=== PATIENT | female | born 1965 | race Caucasian/White ===

== ENCOUNTER → 2019-12-23 12:49 | Outpatient (BNVA) | payer BC, SELFPAY | PROVIDERS: Family Provider Family Medicine; Visit Provider Nurse Practitioner Psychiatric/Mental Health | DX: F33.2 Major depressive disorder, recurrent severe without psychotic features (principal); F41.1 Generalized anxiety disorder; Z63.4 Disappearance and death of family member | CPT/HCPCS: 99214 ==

== ENCOUNTER → 2020-01-03 13:50 | Outpatient (BNVA) | payer BC, SELFPAY | PROVIDERS: Family Provider Family Medicine; PCP Family Medicine; Visit Provider Social Worker | DX: F33.2 Major depressive disorder, recurrent severe without psychotic features (principal); F41.1 Generalized anxiety disorder | CPT/HCPCS: 90834 ==

== ENCOUNTER → 2020-01-16 14:38 | Outpatient (BNVA) | payer BC, SELFPAY | PROVIDERS: Family Provider Family Medicine; PCP Family Medicine; Visit Provider Nurse Practitioner Psychiatric/Mental Health | DX: F33.2 Major depressive disorder, recurrent severe without psychotic features (principal); F41.1 Generalized anxiety disorder; Z63.4 Disappearance and death of family member | CPT/HCPCS: 99214 ==

== ENCOUNTER → 2020-02-16 13:45 | Outpatient (BNVA) | payer BC, SELFPAY | PROVIDERS: Family Provider Family Medicine; PCP Family Medicine; Visit Provider Social Worker | DX: F33.2 Major depressive disorder, recurrent severe without psychotic features (principal); F41.1 Generalized anxiety disorder | CPT/HCPCS: 90834 ==

== ENCOUNTER → 2020-03-01 08:28 | Outpatient (BNVA) | payer BC, SELFPAY | PROVIDERS: Family Provider Family Medicine; PCP Family Medicine; Visit Provider Nurse Practitioner Psychiatric/Mental Health | DX: F33.2 Major depressive disorder, recurrent severe without psychotic features (principal); F41.1 Generalized anxiety disorder; Z63.4 Disappearance and death of family member | CPT/HCPCS: 99214 ==

== ENCOUNTER → 2020-03-13 08:27 | Outpatient (BNVA) | payer BC, SELFPAY | PROVIDERS: Family Provider Family Medicine; PCP Family Medicine; Visit Provider Social Worker | DX: R41.3 Other amnesia (principal); F33.2 Major depressive disorder, recurrent severe without psychotic features; F41.1 Generalized anxiety disorder | CPT/HCPCS: 90834 ==

== ENCOUNTER → 2020-04-05 08:31 | Outpatient (BNVA) | payer BC, SELFPAY | PROVIDERS: Family Provider Family Medicine; PCP Family Medicine; Visit Provider Social Worker | DX: F33.2 Major depressive disorder, recurrent severe without psychotic features (principal); F41.1 Generalized anxiety disorder | CPT/HCPCS: 90834 ==

== ENCOUNTER → 2020-04-12 10:06 | Outpatient (BNVA) | payer BC, SELFPAY | PROVIDERS: Family Provider Family Medicine; PCP Family Medicine; Visit Provider Family Medicine | DX: Z00.00 Encounter for general adult medical examination without abnormal findings (principal); R30.0 Dysuria; E55.9 Vitamin D deficiency, unspecified; Z12.31 Encounter for screening mammogram for malignant neoplasm of breast; Z13.6 Encounter for screening for cardiovascular disorders; Z86.39 Personal history of other endocrine, nutritional and metabolic disease | CPT/HCPCS: 80053; 80061; 81000; 82306; 85025 ==

== ENCOUNTER 2020-04-28 12:31 | Emergency (ER) | payer BC, SELFPAY ==
[2020-04-28 12:33] VITALS: BP 98/70; PULSE 73; RESP 18; TEMP 36.1; O2SAT 100; BMI 28.7
[2020-04-28 12:43] VITALS: RESP 17
--- NOTE | 2020-04-28 13:02 | W.ED.ANIMALB ---
HPI - Animal Bite General: Chief Complaint: Animal Bite Stated Complaint: DOG BITE 04/21 Time Seen by Provider: 04/28/20 12:34 Source: patient Mode of arrival: ambulatory Limitations: no limitations History of Present Illness: HPI narrative: Patient is a 54-year-old female who went to feed her neighbors dog. She states that the dog is very territorial and she knows this, however she still went ahead to try to feed the dog. The dog then bit her on her right forearm. This happened 1 week ago. The patient did not seek care after that and has been cleaning the wound daily with chlorhexidine. She is having increased pain and some redness and drainage from the wounds. The dog is an inside dog and is never let out, and she states that the dog is up-to-date on his rabies vaccines. The patient had a tetanus vaccine last year. complaint: animal bite Onset (ago): week(s) (1) Animal: dog Description of animal: household pet, immunizations UTD and appeared well Mechanism: bite Location - Extremities: Right: forearm Context: provoked Associated symptoms: Deny chills, fever(s) or headache(s) Review of Systems General: Reports: 10 or more systems reviewed and unremarkable except in HPI and below Const: Denies: fever(s), chills or body aches Card: Reports: chest pain; Denies: palpitations, irregular heart rhythm, edema or swelling of feet/ankles Resp: Denies: dyspnea, productive cough or non-productive cough GI: Denies: abdominal pain, nausea or vomiting : Denies: flank pain, difficulty voiding, dysuria, urinary frequency, urinary urgency or urinary hesitancy Musc: Denies: neck pain, back pain or extremity swelling Skin/Breast: Reports: sores; Denies: rash, pruritus or erythema Neuro: Denies: headache(s), numbness in extremities or weakness in extremities PFSH ED PFSH: Medical History Bereavement Fibromyalgia Generalized anxiety disorder Major depressive disorder, recurrent severe without psychotic features Surgical History H/O spinal fusion H/O: hysterectomy S/P appendectomy S/P cholecystectomy S/P tonsillectomy and adenoidectomy Family History Other Diabetes Lung disease Psychiatric illness Social History Smoking and tobacco status: never smoked Alcohol intake: never Physical Exam Const: COMMON NORMALS: no acute distress, average body habitus, patient oriented x3, no limitations, healthy appearing, alert and well nourished HENMT: COMMON NORMALS: normocephalic, atraumatic and moist oral mucous membranes HEAD & SCALP: normocephalic and atraumatic Eye: COMMON NORMALS: Equal, round and reactive pupils present, EOMs intact bilaterally, conjunctivae normal and no scleral icterus CONJUNCTIVA: Yes conjunctivae normal PUPIL: Yes Equal, round and reactive pupils present Neck/C-Spine: COMMON NORMALS: no meningeal signs and no JVD Resp: COMMON NORMALS: normal respiratory effort, No retractions, No use of accessory muscles, clear to auscultation bilaterally and percussion normal AUSCULTATION: clear to auscultation bilaterally PERCUSSION: percussion normal Cardio: COMMON NORMALS: no JVD, regular rate, regular rhythm, S1 normal heart sound present, S2 normal heart sound present, No gallops present (Cardio), No clicks present (Cardio), No murmurs present (Cardio), No rub (Cardio) and Peripheral pulses 2+ throughout RATE: regular rate RHYTHM: regular rhythm HEART SOUNDS: S1 normal heart sound present and S2 normal heart sound present PERIPHERAL PULSES: Peripheral pulses 2+ throughout GI: COMMON NORMALS: Normal to inspection, nondistended, normoactive bowel sounds present, Soft to palpation, non-tender, No hepatosplenomegaly present, no masses and no bruits PALPATION: Yes Soft to palpation and Yes No hepatosplenomegaly present : COMMON NORMALS: Yes no CVA tenderness BLADDER/KIDNEY EXAM: Yes no CVA tenderness Back/Pelvis: COMMON NORMALS: no CVA tenderness Extremity: COMMON NORMALS: normal to inspection, full ROM, capillary refill normal, no calf tenderness and no pedal edema Neuro: COMMON NORMALS: patient oriented x3 SENSORIUM/ORIENTATION: Yes alert MENINGEAL SIGNS: Yes no meningeal signs Skin: COMMON NORMALS: no wounds, turgor normal, no jaundice, no petechiae and no mottling GENERAL SKIN EXAM: turgor normal OTHER: 3 bite [place] noted on her right forearm, with mild surrounding erythema. No drainage or discharge noted Course Vital Signs: Vital signs: Vital Signs Temperature 96.9 F L 04/28/20 12:33 Pulse Rate 67 04/28/20 13:10 Respiratory Rate 17 04/28/20 13:10 Blood Pressure 109/70 04/28/20 13:10 Pulse Oximetry 96 04/28/20 13:10 MDM - Animal Bite MDM Narrative: Medical decision making narrative: 54-year-old female with a week old dog bite. The dog is fully immunized and no risk of rabies. She did not seek care and has not been on antibiotics. I cleaned her wound with iodine and saline covered with sterile dressing and discharge her home on oral doxycycline. She is allergic to penicillins. She is advised to follow-up with her primary care provider for wound evaluation. Discharge Plan Discharge Patient Disposition: Home, Self-Care Clinical Impression: Dog bite of extremity Condition: Stable Prescriptions: New doxycycline hyclate 100 mg tablet 100 mg PO BID 7 Days Qty: 14 RF: 0 Continued famotidine [Pepcid] 20 mg tablet 20 mg PO BID RF: 0 fluoxetine [Prozac] 20 mg capsule 20 mg PO .morning Qty: 30 RF: 1 clonazepam [Klonopin] 0.5 mg tablet 0.5 mg PO BID Qty: 60 RF: 3 cyclobenzaprine 10 mg tablet 10 mg PO TID PRN (Reason: muscle spasm) RF: 0 albuterol sulfate 90 mcg/actuation HFA aerosol inhaler 2 puff INHALATION Q6H PRNRF: 0 fluticasone propionate [Allergy Relief (fluticasone)] 50 mcg/actuation spray,suspension 2 spray INTRANASAL DAILY RF: 0 trazodone 300 mg tablet 300 mg PO .QHS Qty: 30 RF: 3 multivitamin Tablet 1 tab PO QAM RF: 0 cholecalciferol (vitamin D3) 25 mcg (1,000 unit) capsule 25 mcg PO DAILY RF: 0 biotin 1 mg capsule 1 mg PO DAILY RF: 0 Discharge Orders: Discharge Order (Routine); Ordered 04/28/20 Ordered By: Ryan Acevedo Referrals: Ruthie Esteban MD [Family Provider] - Rachel Whittington DO [Primary Care Provider] - 4-7 days Patient Instructions: Animal Bite (ED) Activity Restrictions/Additional Instructions: Return for any new or worsening symptoms. Take the antibiotics as prescribed. Continue the wound care as you were doing. Follow-up with your primary care provider within 1 week for wound recheck. Discharge Date/Time: 04/28/20 13:10 Coding Level of Care Code ED Bonding Agent for Lainey Sanon
[2020-04-28 13:10] VITALS: BP 109/70; PULSE 67; RESP 17; O2SAT 96
== END 2020-04-28 13:10 | disposition home or self-care (01) ==
PROVIDERS: Emergency Provider Family Medicine; Family Provider Family Medicine; PCP Family Medicine
DX: S51.851A Open bite of right forearm, initial encounter (principal); W54.0XXA Bitten by dog, initial encounter
CPT/HCPCS: 12345; 99281; 99282

== ENCOUNTER → 2020-04-30 07:32 | Outpatient (BNVA) | payer BC, SELFPAY | PROVIDERS: Family Provider Family Medicine; PCP Family Medicine; Visit Provider Nurse Practitioner Psychiatric/Mental Health | DX: F33.2 Major depressive disorder, recurrent severe without psychotic features (principal); F41.1 Generalized anxiety disorder; Z63.4 Disappearance and death of family member | CPT/HCPCS: 99214 ==

== ENCOUNTER → 2020-05-03 07:57 | Outpatient (BNVA) | payer BC, SELFPAY | PROVIDERS: Family Provider Family Medicine; PCP Family Medicine; Visit Provider Counselor Professional | DX: F33.2 Major depressive disorder, recurrent severe without psychotic features (principal); F41.1 Generalized anxiety disorder; Z63.4 Disappearance and death of family member | CPT/HCPCS: 90834 ==

== ENCOUNTER → 2020-05-21 08:23 | Outpatient (BNVA) | payer BC, SELFPAY | PROVIDERS: Family Provider Family Medicine; PCP Family Medicine; Visit Provider Counselor Professional | DX: F33.2 Major depressive disorder, recurrent severe without psychotic features (principal); Z63.4 Disappearance and death of family member | CPT/HCPCS: 90834 ==

== ENCOUNTER 2020-05-30 11:44 | Outpatient (CLI) | payer BC, SELFPAY ==
--- NOTE | 2020-05-30 12:00 | MM_ITS ---
WS: [id number] BILATERAL DIGITAL SCREENING MAMMOGRAPHY WITH CAD CLINICAL INFORMATION: screening mammogram HISTORY: Screening mammogram. No current complaints. COMPARISON: 4 16,018 TECHNIQUE: Bilateral CC and MLO views. FINDINGS: Scattered fibroglandular densities bilaterally. No suspicious focal mass, asymmetry, calcifications, or architectural distortion. No evidence of malignancy. A few tiny punctate calcifications right sofya st. MM/[id number] IMPRESSION: BI-RADS: 2-Benign FOLLOW UP: 1 Year Follow-up Recommend return to annual screening mammography.
== END 2020-05-30 11:45 | disposition home or self-care (01) ==
LOC: RADSHAW 11:47
PROVIDERS: PCP Family Medicine; Visit Provider Family Medicine
DX: Z12.31 Encounter for screening mammogram for malignant neoplasm of breast (principal)
CPT/HCPCS: 77067

== ENCOUNTER → 2020-06-01 07:44 | Outpatient (BNVA) | payer BC, SELFPAY | PROVIDERS: PCP Family Medicine; Visit Provider Nurse Practitioner Psychiatric/Mental Health | DX: F33.2 Major depressive disorder, recurrent severe without psychotic features (principal); F41.1 Generalized anxiety disorder; Z63.4 Disappearance and death of family member | CPT/HCPCS: 99214 ==

== ENCOUNTER 2020-06-08 10:24 | Outpatient (CLI) | payer BC, SELFPAY ==
--- NOTE | 2020-06-08 10:32 | USCV_ITS ---
Gay Castro Age: 54 Gender: F : 1965 Exam Date: 06/08/2020 10:58 Ordering Phys: Rachel Whittington DO Technologist: Katheryn Anne [place] [facility] [place]: SWELLING OF FEET BP: / HR: 65 Rhythm: Sinus Technical Quality: Adequate MEASUREMENTS (Male / Female) Normal Values 2D ECHO LV Diastolic Diameter PLAX 3.6 cm 4.2 - 5.9 / 3.9 - 5.3 cm LV Systolic Diameter PLAX 3.3 cm LV Chamber Size 3.3 cm IVS Diastolic Thickness 0.9 cm 0.6 - 1.0 / 0.6 - 0.9 cm IVS Systolic Thickness 1.6 cm LVPW Diastolic Thickness 1.0 cm 0.6 - 1.0 / 0.6 - 0.9 cm LVPW Systolic Thickness 1.1 cm RV Chamber Size 2.5 cm LVOT Diameter 2.0 cm LV Ejection Fraction 2D Teich 16.6 % LV Ejection Fraction MOD 2C 49.2 % LV Ejection Fraction 2C AL 47.9 % LA Diameter 3.3 cm LA Width 2.4 cm LA Height 4.3 cm RA Width 2.7 cm RA Height 2.9 cm Aorta at Sinotubular Diameter 2.8 cm M-MODE LV Diastolic Diameter MM 4.6 cm 4.2 - 5.9 / 3.9 - 5.3 cm LV Systolic Diameter MM 3.0 cm LV Ejection Fraction MM Teich 64.4 % IVS Diastolic Thickness MM 1.0 cm 0.6 - 1.0 / 0.6 - 0.9 cm IVS Systolic Thickness MM 1.2 cm LVPW Diastolic Thickness MM 1.1 cm 0.6 - 1.0 / 0.6 - 0.9 cm LVPW Systolic Thickness MM 1.4 cm RV Diastolic Diameter MM 0.8 cm Aortic Annulus Diameter 2.6 cm LA Ao Ratio MM 1.2 MV E Point Septal Separation 0.4 cm DOPPLER AV Peak Velocity 150.0 cm/s LVOT Peak Velocity 102.0 cm/s AV Area Cont Eq vti 2.2 cm squared AV Area Cont Eq pk 2.2 cm squared MV Area PHT 3.9 cm squared Mitral E to A Ratio 1.2 MV E' Velocity 11.0 cm/s Mitral E to MV E' Ratio 7.3 Mitral E to LV E' Lateral Ratio 6.9 Mitral E to LV E' Septal Ratio 7.9 TR Peak Velocity 203.0 cm/s TR Peak Gradient 16.5 mmHg TR Mean Velocity 69.6 cm/s TR Mean Gradient 2.3 mmHg TR Velocity Time Integral 26.7 cm TV Peak E Velocity 56.0 cm/s Right Atrial Pressure 3.0 mmHg Pulmonary Artery Systolic Pressu 19.5 mmHg PV Peak Velocity 73.0 cm/s RV Acceleration Time 0.1 s RV Ejection Time 0.3 s RV AcT/ET 0.3 FINDINGS Left Ventricle Normal left ventricular size, systolic function and wall thickness, with no regional wall motion abnormalities. Left ventricular ejection fraction is estimated at 65 %. Normal diastolic function. Right Ventricle Normal right ventricular size and systolic function, RVSP 19.5 mmHg. Right Atrium Normal right atrial size. Left Atrium Normal left atrial size. Mitral Valve Structurally normal mitral valve. No mitral valve stenosis. Trace mitral valve regurgitation. Aortic Valve Structurally normal trileaflet aortic valve. No aortic valve stenosis. No aortic valve regurgitation. Tricuspid Valve Structurally normal tricuspid valve. Trace tricuspid valve regurgitation. Pulmonic Valve Structurally normal pulmonic valve. Trace pulmonary valve regurgitation. Pericardium No pericardial effusion. Aorta Normal size aortic root and proximal ascending aorta. CONCLUSIONS 1. Normal left ventricular size, systolic function and wall thickness, with no regional wall motion abnormalities. Left ventricular ejection fraction is estimated at 65 %. Normal diastolic function. 2. No significant valvular abnormality. 3. Normal pulmonary artery pressure. 4. No prior similar studies to compare. Vania Jo MD (Electronically Signed) Final Date: 11 June 2020 05:56 S
== END 2020-06-08 10:25 | disposition home or self-care (01) ==
LOC: RAD 10:27
PROVIDERS: PCP Family Medicine; Visit Provider Family Medicine
DX: R60.0 Localized edema (principal); M79.89 Other specified soft tissue disorders
CPT/HCPCS: 93306

== ENCOUNTER → 2020-06-11 08:13 | Outpatient (BNVA) | payer BC, SELFPAY | PROVIDERS: PCP Family Medicine; Visit Provider Counselor Professional | DX: F33.2 Major depressive disorder, recurrent severe without psychotic features (principal); F41.1 Generalized anxiety disorder; Z63.4 Disappearance and death of family member | CPT/HCPCS: 90834 ==

== ENCOUNTER → 2020-06-12 14:50 | Outpatient (BNVA) | payer BC, SELFPAY | PROVIDERS: PCP Family Medicine; Visit Provider Family Medicine | DX: R60.0 Localized edema (principal); R41.3 Other amnesia | CPT/HCPCS: 80048 ==

== ENCOUNTER → 2020-06-22 09:06 | Outpatient (BNVA) | payer BC, SELFPAY | PROVIDERS: PCP Family Medicine; Visit Provider Counselor Professional | DX: F33.2 Major depressive disorder, recurrent severe without psychotic features (principal); F41.1 Generalized anxiety disorder; Z63.4 Disappearance and death of family member | CPT/HCPCS: 90834 ==

== ENCOUNTER → 2020-07-02 08:37 | Outpatient (BNVA) | payer BC, SELFPAY | PROVIDERS: PCP Family Medicine; Visit Provider Counselor Professional | DX: F33.2 Major depressive disorder, recurrent severe without psychotic features (principal); F41.1 Generalized anxiety disorder; Z63.4 Disappearance and death of family member | CPT/HCPCS: 90834 ==

== ENCOUNTER → 2020-07-13 10:08 | Outpatient (BNVA) | payer BC, SELFPAY | PROVIDERS: PCP Family Medicine; Visit Provider Nurse Practitioner Psychiatric/Mental Health | DX: F33.2 Major depressive disorder, recurrent severe without psychotic features (principal); F41.1 Generalized anxiety disorder; Z63.4 Disappearance and death of family member | CPT/HCPCS: 99214 ==

== ENCOUNTER → 2020-07-16 09:00 | Outpatient (BNVA) | payer BC, SELFPAY | PROVIDERS: PCP Family Medicine; Visit Provider Counselor Professional | DX: F33.2 Major depressive disorder, recurrent severe without psychotic features (principal); F41.1 Generalized anxiety disorder; Z63.4 Disappearance and death of family member | CPT/HCPCS: 90834 ==

== ENCOUNTER → 2020-07-26 11:46 | Outpatient (BNVA) | payer BC, SELFPAY | PROVIDERS: PCP Family Medicine; Visit Provider Family Medicine | DX: R60.0 Localized edema (principal) | CPT/HCPCS: 80048 ==

== ENCOUNTER → 2020-08-06 08:27 | Outpatient (BNVA) | payer BC, SELFPAY | PROVIDERS: PCP Family Medicine; Visit Provider Counselor Professional | DX: F33.2 Major depressive disorder, recurrent severe without psychotic features (principal); F41.1 Generalized anxiety disorder; Z63.4 Disappearance and death of family member | CPT/HCPCS: 90834 ==

== ENCOUNTER → 2020-08-27 09:08 | Outpatient (BNVA) | payer BC, SELFPAY | PROVIDERS: PCP Family Medicine; Visit Provider Counselor Professional | DX: F33.2 Major depressive disorder, recurrent severe without psychotic features (principal); F41.1 Generalized anxiety disorder | CPT/HCPCS: 90834 ==

== ENCOUNTER → 2020-09-10 08:21 | Outpatient (BNVA) | payer BC, SELFPAY | PROVIDERS: PCP Family Medicine; Visit Provider Nurse Practitioner Psychiatric/Mental Health | DX: F33.2 Major depressive disorder, recurrent severe without psychotic features (principal); F41.1 Generalized anxiety disorder; Z63.4 Disappearance and death of family member | CPT/HCPCS: 99214 ==

== ENCOUNTER → 2020-09-14 07:53 | Outpatient (BNVA) | payer BC, SELFPAY | PROVIDERS: PCP Family Medicine; Visit Provider Counselor Professional | DX: F33.2 Major depressive disorder, recurrent severe without psychotic features (principal); F41.1 Generalized anxiety disorder; Z63.4 Disappearance and death of family member | CPT/HCPCS: 90834 ==

== ENCOUNTER → 2020-09-25 08:01 | Outpatient (BNVA) | payer BC, SELFPAY | PROVIDERS: PCP Family Medicine; Visit Provider Counselor Professional | DX: F33.2 Major depressive disorder, recurrent severe without psychotic features (principal); F41.1 Generalized anxiety disorder; Z63.4 Disappearance and death of family member | CPT/HCPCS: 90834 ==

== ENCOUNTER → 2020-10-04 08:14 | Outpatient (BNVA) | payer BC, SELFPAY | PROVIDERS: PCP Family Medicine; Visit Provider Counselor Professional | DX: F33.2 Major depressive disorder, recurrent severe without psychotic features (principal); F41.1 Generalized anxiety disorder; Z63.4 Disappearance and death of family member | CPT/HCPCS: 90834 ==

== ENCOUNTER → 2020-10-08 08:55 | Outpatient (BNVA) | payer BC, SELFPAY | PROVIDERS: PCP Family Medicine; Visit Provider Counselor Professional | DX: F33.2 Major depressive disorder, recurrent severe without psychotic features (principal); F41.1 Generalized anxiety disorder; Z63.4 Disappearance and death of family member | CPT/HCPCS: 90834 ==

== ENCOUNTER → 2020-10-30 08:23 | Outpatient (BNVA) | payer BC, SELFPAY | PROVIDERS: PCP Family Medicine; Visit Provider Counselor Professional | DX: F33.2 Major depressive disorder, recurrent severe without psychotic features (principal); F41.1 Generalized anxiety disorder; Z63.4 Disappearance and death of family member | CPT/HCPCS: 90834 ==

== ENCOUNTER → 2020-11-06 13:43 | Outpatient (BNVA) | payer BC, SELFPAY | PROVIDERS: PCP Family Medicine; Referring Provider Family Medicine; Visit Provider Specialist | DX: G31.84 Mild cognitive impairment of uncertain or unknown etiology (principal); R56.9 Unspecified convulsions; M79.7 Fibromyalgia | CPT/HCPCS: 96116; 99204 ==

== ENCOUNTER → 2020-11-07 07:36 | Outpatient (BNVA) | payer BC, SELFPAY | PROVIDERS: PCP Family Medicine; Visit Provider Nurse Practitioner Psychiatric/Mental Health | DX: F33.2 Major depressive disorder, recurrent severe without psychotic features (principal); F41.1 Generalized anxiety disorder; Z63.4 Disappearance and death of family member; G31.84 Mild cognitive impairment of uncertain or unknown etiology | CPT/HCPCS: 99214 ==

== ENCOUNTER → 2020-11-19 08:20 | Outpatient (BNVA) | payer OTHER, SELFPAY | PROVIDERS: PCP Family Medicine; Visit Provider Counselor Professional | DX: F33.2 Major depressive disorder, recurrent severe without psychotic features (principal); F41.1 Generalized anxiety disorder; Z63.4 Disappearance and death of family member; G31.84 Mild cognitive impairment of uncertain or unknown etiology | CPT/HCPCS: 90834 ==

== ENCOUNTER → 2020-11-27 09:22 | Outpatient (BNVA) | payer OTHER, SELFPAY | PROVIDERS: PCP Family Medicine; Visit Provider Counselor Professional | DX: F33.2 Major depressive disorder, recurrent severe without psychotic features (principal); F41.1 Generalized anxiety disorder; Z63.4 Disappearance and death of family member; G31.84 Mild cognitive impairment of uncertain or unknown etiology | CPT/HCPCS: 90834 ==

== ENCOUNTER → 2020-11-29 13:01 | Outpatient (BNVA) | payer OTHER, SELFPAY | PROVIDERS: PCP Family Medicine; Visit Provider Specialist | DX: G40.909 Epilepsy, unspecified, not intractable, without status epilepticus (principal); G31.84 Mild cognitive impairment of uncertain or unknown etiology | CPT/HCPCS: 95816 ==

== ENCOUNTER → 2020-12-03 14:12 | Outpatient (BNVA) | payer OTHER, SELFPAY | PROVIDERS: PCP Family Medicine; Visit Provider Nurse Practitioner Family | DX: Z20.828 Contact with and (suspected) exposure to other viral communicable diseases (principal); J06.9 Acute upper respiratory infection, unspecified | CPT/HCPCS: 87635 ==

== ENCOUNTER → 2020-12-10 08:44 | Outpatient (BNVA) | payer OTHER, SELFPAY | PROVIDERS: PCP Family Medicine; Visit Provider Counselor Professional | DX: F33.2 Major depressive disorder, recurrent severe without psychotic features (principal); F41.1 Generalized anxiety disorder; Z63.4 Disappearance and death of family member; G31.84 Mild cognitive impairment of uncertain or unknown etiology | CPT/HCPCS: 90834 ==

== ENCOUNTER 2020-12-13 15:06 | Outpatient (CLI) | payer OTHER, SELFPAY ==
--- NOTE | 2020-12-13 15:12 | MR_ITS ---
WS: [id number] MRI HEAD WITHOUT CONTRAST TECHNIQUE: Sagittal T1, T2 axial, T2 axial FLAIR, axial and coronal T1 images, axial susceptibility w eighted imaging, axial diffusion weighted images, and coronal T2 images were obtained. CLINICAL INFORMATION: R41.3 - Other amnesia COMPARISON: MRI 2012 FINDINGS: No evidence of restricted diffusion to suggest acute ischemia. Ventricular system and basal cisterns are patent. No suspicious intracranial signal abnormalities. Normal quintero-white differentiation. No hy drocephalus. Tiny chronic lacunar infarct left cerebellum. Normal vascular flow voids skull base. No extra-axial fluid collections. No evidence of mass or mass effect. Paranasal sinuses and mastoid air cells well aerated. Temporal lobes and hippocampal formatio ns are normal in appearance. No signal abnormalities in the mesial temporal lobes. No hemosiderin on susceptibly weighted images. Normal optic chiasm and pituitary infundibulum. Normal cavernous sinus a nd Meckel's cave. MR/MR head wo con* [id number] IMPRESSION: 1. No evidence of restricted diffusion to suggest acute ischemia. 2. No suspicious intracranial signal abnormalities. Mild parenchymal volume lo ss. 3. Temporal lobes and hippocampal formations are normal in appearance. No sign al abnormality in the mesial temporal lobes. 4. No hemosiderin on susceptibly weighted images. 5. Tiny chronic lacunar infarct left cerebellum
== END 2020-12-13 15:07 | disposition home or self-care (01) ==
LOC: RADSHAW 15:11
PROVIDERS: PCP Family Medicine; Visit Provider Specialist
DX: R41.3 Other amnesia (principal); I63.81 Other cerebral infarction due to occlusion or stenosis of small artery
CPT/HCPCS: 70551; 99214

== ENCOUNTER → 2020-12-24 07:51 | Outpatient (BNVA) | payer BC, SELFPAY | PROVIDERS: PCP Family Medicine; Visit Provider Nurse Practitioner Psychiatric/Mental Health | DX: F33.2 Major depressive disorder, recurrent severe without psychotic features (principal); F41.1 Generalized anxiety disorder; Z63.4 Disappearance and death of family member; G31.84 Mild cognitive impairment of uncertain or unknown etiology | CPT/HCPCS: 99214 ==

== ENCOUNTER → 2021-01-23 14:13 | Outpatient (BNVA) | payer OTHER, SELFPAY | PROVIDERS: PCP Family Medicine; Visit Provider Family Medicine | DX: M79.671 Pain in right foot (principal); R60.0 Localized edema | CPT/HCPCS: 80048 ==

== ENCOUNTER 2021-01-25 13:28 | Outpatient (CLI) | payer OTHER, SELFPAY ==
--- NOTE | 2021-01-25 13:45 | XR_ITS ---
WS: [id number] RIGHT FOOT: 3 VIEW(S) TECHNIQUE: AP, oblique and lateral. HISTORY: right heel pain COMPARISON: None available. No acute fracture or dislocation. Mild hallux valgus. No erosions. Normal alignment at the tarsometatarsal articulation. Several hammer toe deformities are noted most significant at the third and fourth toes. No soft tissue abnormality or bone destruction. XR/XR foot RT min 3V* [id number] IMPRESSION: 1. No acute fracture or dislocation. 2. No erosions. 3. Mild hallux valgus.
== END 2021-01-25 13:29 | disposition home or self-care (01) ==
LOC: RADWPI 13:31
PROVIDERS: PCP Family Medicine; Visit Provider Family Medicine
DX: M20.11 Hallux valgus (acquired), right foot (principal)
CPT/HCPCS: 73630

== ENCOUNTER → 2021-04-17 13:33 | Outpatient (BNVA) | payer OTHER, SELFPAY | PROVIDERS: PCP Family Medicine; Referring Provider Family Medicine; Visit Provider Podiatrist Foot & Ankle Surgery | DX: M79.671 Pain in right foot (principal); M76.71 Peroneal tendinitis, right leg; M20.11 Hallux valgus (acquired), right foot | CPT/HCPCS: 73610 ==

== ENCOUNTER 2021-04-17 14:08 | Outpatient (CLI) | payer OTHER, SELFPAY | END 2021-04-17 14:09 | disposition home or self-care (01) | LOC: SPT 14:08 | PROVIDERS: PCP Family Medicine; Visit Provider Podiatrist Foot & Ankle Surgery | DX: Z46.89 Encounter for fitting and adjustment of other specified devices (principal); M76.70 Peroneal tendinitis, unspecified leg | CPT/HCPCS: 97760; L4361 ==

== ENCOUNTER → 2021-04-29 13:38 | Outpatient (BNVA) | payer OTHER, SELFPAY | PROVIDERS: PCP Family Medicine; Visit Provider Specialist | DX: G31.84 Mild cognitive impairment of uncertain or unknown etiology (principal); F41.1 Generalized anxiety disorder | CPT/HCPCS: 99214 ==

== ENCOUNTER 2021-05-15 14:01 | Outpatient (CLI) | payer OTHER, SELFPAY | END 2021-05-15 14:02 | disposition home or self-care (01) | LOC: SPT 14:02 | PROVIDERS: PCP Family Medicine; Visit Provider Podiatrist Foot & Ankle Surgery | DX: Z46.89 Encounter for fitting and adjustment of other specified devices (principal); M79.671 Pain in right foot | CPT/HCPCS: 97760; L1902 ==

== ENCOUNTER 2021-05-30 13:41 | Outpatient (CLI) | payer OTHER, SELFPAY ==
--- NOTE | 2021-05-30 14:00 | MM_ITS ---
WS: [id number] BILATERAL DIGITAL SCREENING MAMMOGRAPHY WITH CAD CLINICAL INFORMATION: screening mammogram HISTORY: Screening mammogram. No current complaints. COMPARISON: May 30, 2020 TECHNIQUE: Bilateral CC and MLO views. FINDINGS: Scattered fibroglandular densities bilaterally. No suspicious focal mass, asymmetry, calcifications, or architectural distortion. No evidence of malignancy. Punctate calcifications right breast. MM/[place] [id number] IMPRESSION: BI-RADS: 2-Benign FOLLOW UP: 1 Year Follow-up Recommend return to annual screening mammography.
== END 2021-05-30 13:42 | disposition home or self-care (01) ==
PROVIDERS: PCP Family Medicine; Visit Provider Family Medicine
DX: Z12.31 Encounter for screening mammogram for malignant neoplasm of breast (principal)
CPT/HCPCS: 77067

== ENCOUNTER 2021-06-26 15:30 | Outpatient (CLI) | payer OTHER, SELFPAY | END 2021-06-26 15:31 | disposition home or self-care (01) | LOC: SPT 15:32 | PROVIDERS: PCP Family Medicine; Visit Provider Podiatrist Foot & Ankle Surgery | DX: Z46.89 Encounter for fitting and adjustment of other specified devices (principal); M72.2 Plantar fascial fibromatosis; M76.70 Peroneal tendinitis, unspecified leg | CPT/HCPCS: 97760; L4397 ==

== ENCOUNTER → 2021-10-02 15:28 | Outpatient (BNVA) | payer OTHER, SELFPAY | PROVIDERS: PCP Family Medicine; Visit Provider Specialist | DX: G31.84 Mild cognitive impairment of uncertain or unknown etiology (principal); M79.7 Fibromyalgia; R29.898 Other symptoms and signs involving the musculoskeletal system; M54.9 Dorsalgia, unspecified; F41.1 Generalized anxiety disorder | CPT/HCPCS: 99214; 99215 ==

== ENCOUNTER → 2021-10-24 15:26 | Outpatient (BNVA) | payer OTHER, SELFPAY | PROVIDERS: PCP Family Medicine; Visit Provider Family Medicine | DX: R30.0 Dysuria (principal); Z13.6 Encounter for screening for cardiovascular disorders | CPT/HCPCS: 81000; 87086 ==

== ENCOUNTER → 2021-10-30 10:18 | Outpatient (BNVA) | payer OTHER, SELFPAY | PROVIDERS: PCP Family Medicine; Visit Provider Family Medicine | DX: Z13.6 Encounter for screening for cardiovascular disorders (principal) | CPT/HCPCS: 80053; 80061; 85025 ==

== ENCOUNTER → 2021-12-24 13:10 | Outpatient (BNVA) | payer SELFPAY | PROVIDERS: PCP Family Medicine; Visit Provider Family Medicine | DX: R30.0 Dysuria (principal) | CPT/HCPCS: 81000 ==

== ENCOUNTER → 2022-01-13 08:20 | Outpatient (BNVA) | payer OTHER, SELFPAY | PROVIDERS: PCP Family Medicine; Referring Provider Family Medicine; Visit Provider Obstetrics & Gynecology | DX: R39.9 Unspecified symptoms and signs involving the genitourinary system (principal); N81.4 Uterovaginal prolapse, unspecified | CPT/HCPCS: 81000 ==

== ENCOUNTER → 2022-01-29 12:11 | Outpatient (BNVA) | payer OTHER, SELFPAY | PROVIDERS: PCP Family Medicine; Visit Provider Obstetrics & Gynecology | DX: R10.2 Pelvic and perineal pain (principal) | CPT/HCPCS: 76830 ==

== ENCOUNTER → 2022-02-07 08:24 | Outpatient (BNVA) | payer OTHER, SELFPAY | PROVIDERS: PCP Family Medicine; Visit Provider Obstetrics & Gynecology | DX: N81.4 Uterovaginal prolapse, unspecified (principal) | CPT/HCPCS: 81000 ==

== ENCOUNTER → 2022-02-24 11:35 | Outpatient (BNVA) | payer OTHER, SELFPAY | PROVIDERS: PCP Family Medicine; Visit Provider Obstetrics & Gynecology | DX: G89.29 Other chronic pain (principal); N36.41 Hypermobility of urethra; N81.4 Uterovaginal prolapse, unspecified; R10.2 Pelvic and perineal pain | CPT/HCPCS: 87635 ==

== ENCOUNTER 2022-02-26 13:13 | Observation (INO) | payer OTHER, SELFPAY ==
[2022-02-24 09:45] VITALS: BMI 28.2
--- NOTE | 2022-02-24 16:12 | ANES.PREANE2 ---
Pre-Anesthetic Assessment Height/Weight: Height 1.68 m Weight 79.379 kg Operation Date: 02/26/22 11:35 Proposed Procedures p Laparoscopy [id number]/n81.4/n36.41/r10.2/g89.29(Not Applicable) - Davie Tom MD s Anterior Repair with Allograft(Not Applicable) - Davie Tom MD s Sling(Not Applicable) - Davie Tom MD Familial anesthetic complications: None Was Beta Laurel taken within 24 hours: N/A Was Clonidine taken within 24 hours: N/A Social No alcohol and No tobacco Exam alert, oriented x 3, clear to auscultation bilaterally and regular rate & rhythm Airway Submandibular: within normal limits Cervical ROM: within normal limits Mallampati: Class II Dentition: full Pulmonary Asthma GI Gastroesophageal Reflux Disease IBS [facility] [place] Fibromyalgia Neuropsych Anxiety, Depression and Neuropathy Memory loss Anesthetic Plan ASA status: 3 Anesthesia: General Medications/Allergies Home Medications Medication Instructions Recorded Confirmed Last Taken Type biotin 1 mg capsule 1 mg PO DAILY 04/27/20 02/24/22 Unknown History multivitamin 1 tab PO QAM 04/27/20 02/24/22 Unknown History dicyclomine 10 mg capsule 10 mg PO TID #90 cap 05/09/20 02/24/22 Unknown Rx acetaminophen 650 mg 650 mg PO Q12H PRN 11/06/20 02/24/22 Unknown History tablet,extended release ascorbate calcium (vitamin C) 500 500 mg PO DAILY 11/06/20 02/24/22 Unknown History mg tablet cholecalciferol (vitamin D3) 25 50 mcg PO DAILY cap 11/06/20 02/24/22 Unknown History mcg (1,000 unit) capsule leg cramps 1 tab PO DAILY 11/06/20 02/24/22 Unknown History mecobalamin (vitamin B12) 1,000 500 mcg PO DAILY tab 11/06/20 02/24/22 Unknown History mcg chewable tablet (B12 Active) eyjhioicyugub-yhcmehlluvczh-zmulvzizuhp 1 tab PO BID tab 11/06/20 02/24/22 Unknown History 5 mg-325 mg-200 mg tablet (Sinus Relief Severe Congestion) restful legs 1 tab PO DAILY 11/06/20 02/24/22 Unknown History ascorbic acid 100 mg-elderberry 1 tab PO DAILY tab 12/21/20 02/24/22 Unknown History fruit 50 mg chewable tablet (Airborne (elderberry)) aspirin 81 mg tablet,delayed 81 mg PO DAILY 12/21/20 02/24/22 Unknown History release (Adult Low Dose Aspirin) acyclovir 400 mg tablet 400 mg PO TID #21 tab 02/21/21 02/24/22 Unknown Rx nebulizer #1 ea 03/21/21 02/24/22 Unknown Rx CAM WALKER #1 ea 04/17/21 02/24/22 Unknown Rx aso #1 ea 05/15/21 02/24/22 Unknown Rx sole supports #1 ea 05/15/21 02/24/22 Unknown Rx Night Splint to the right #1 ea 06/26/21 02/24/22 Unknown Rx donepezil 10 mg tablet 10 mg PO DAILY #30 tab 10/02/21 02/24/22 Unknown Rx budesonide-formoterol HFA 160 2 inh INHALATION BID #10.2 g 10/24/21 02/24/22 Unknown Rx mcg-4.5 mcg/actuation aerosol inhaler (Symbicort) fluticasone propionate 50 2 spray INTRANASAL DAILY #15.8 ml 10/24/21 02/24/22 Unknown Rx mcg/actuation nasal spray,suspension (Allergy Relief (fluticasone)) cimetidine 200 mg tablet (Tagamet 200 mg PO DAILY tab 11/18/21 02/24/22 Unknown History HB) estradiol 0.5 mg tablet 0.5 mg PO DAILY #90 tab 12/17/21 02/24/22 Unknown Rx clonazepam 0.5 mg tablet (Klonopin) 0.5 mg PO BID #60 tab 12/21/21 02/24/22 Unknown Rx fluoxetine 40 mg capsule (Prozac) 40 mg PO QAM #30 cap 01/14/22 02/24/22 Unknown Rx trazodone 100 mg tablet 100 mg PO DIRECTED PRN #30 tab 01/14/22 02/24/22 Unknown Rx bumetanide 0.5 mg tablet See Rx Instructions .ROUTE 02/10/22 02/24/22 Unknown Rx .COMPLEX #90 tab Allergies Allergy/AdvReac Type Severity Reaction Status Date / Time amoxicillin Allergy Severe Rash Verified 02/24/22 09:36 bupropion [From Wellbutrin] Allergy Severe anaphylaxis Verified 02/24/22 09:36 hydrochlorothiazide Allergy Severe edema, Verified 02/24/22 09:36 sweating latex Allergy Severe rash Verified 02/24/22 09:36 naltrexone Allergy Severe anaphylaxis Verified 02/24/22 09:36 Penicillins Allergy Unknown rash Verified 02/24/22 09:36 prochlorperazine Allergy Unknown Dystonia Verified 02/24/22 09:36 of face [facility] Anesthesia Medical History (Updated 02/16/22 @ 17:18 by Davie Tom MD) Bereavement Loss of father Fibromyalgia Generalized anxiety disorder Genital herpes Major depressive disorder, recurrent severe without psychotic features Psychiatric care Surgical History (Updated 01/13/22 @ 12:28 by Bhakti Hope MD) H/O spinal fusion H/O: hysterectomy History of laminectomy S/P appendectomy S/P cholecystectomy S/P tonsillectomy and adenoidectomy Family History (Updated 01/13/22 @ 08:08 by Sofie Abbott LPN) Sister Bleeding disorder Harirs syndrome Diabetes Clotting disorder Hyperlipidemia Hypertension Thyroid disease hypothyroidism Mother CAD (coronary artery disease) Hyperlipidemia Hypertension Stroke Father Cancer Prostate Family/Other Cancer 2 paternal uncles--lymphoma Diabetes Maternal uncle Other Lung disease Psychiatric illness Denies family history of Chronic kidney disease (CKD) Social History Smoking and tobacco status: never smoked Alcohol intake: never History of recent travel: No Data Anesthesia Cardiac Studies: Echocardiogram Ultrasound 06/08/20
[2022-02-26] VITALS (19 sets, daily range): BP systolic 103–135; BP diastolic 32–81; PULSE 65–98; RESP 12–17; TEMP 36.4–36.7; O2SAT 89–99
[2022-02-26] MEDS: sodium chloride 0.9% 500 ML IV (08:47)
[2022-02-26] MEDS: sodium chloride 0.9% 1,000 ML 30 ML IV (08:47)
[2022-02-26] MEDS: scopolamine 1.5 Patch 1 PATCH TRANSDERMA (08:48)
[2022-02-26 09:08] LABS: Add Urine Microscopic? NO; Charge for UA Resulting for Rev
[2022-02-26 09:11] LABS: Basophils % 0.5 %; Eosinophils # 0.1 10^3/uL (0.0-0.8); Eosinophils % 0.9 %; Hematocrit 42.3 % (37.0-47.0); Hemoglobin 14.4 g/dL (11.5-15.3); Lymphocytes # 1.9 10^3/uL (0.8-4.8); Lymphocytes % 33.6 %; Mean Corpuscular Hemoglobin 31.9 pg (28.0-34.0); Mean Corpuscular Volume 93.6 fl (81-99); Mean Platelet Volume 10.1 fL (7.4-10.4); Monocytes # 0.5 10^3/uL (0.2-0.9); Monocytes % 9.6 %; Neutrophils # 3.06 10^3/uL (1.8-7.7); Neutrophils % 55.2 %; Nucleated Red Blood Cells % 0 %; Platelet Count 279 10^3/cmm (130-400); Red Blood Count 4.52 10^6/uL (4.1-5.3); Red Cell Distribution Width 12.5 % (12.1-15.1); White Blood Count 5.5 10^3/uL (4.0-10.0)
--- NOTE | 2022-02-26 09:27 | P.ANESUD_ITS ---
Pre-Anesthetic Update Pre-Anesthetic Assessment: Date of Surgery/Procedure: 02/26/22 Preop Alfreda gnosis: Cystocele, pelvic pain, dyspareunia Proposed Procedure: Operation Date: 02/26/22 09:35 Proposed Procedures p Laparoscopy [id number]/n81.4/n36.41/r10.2/g89.29(Not Applicable) - Davie Tom MD s Anterior Repair with Allograft(Not Applicable) - Davie Tom MD s Sling(Not Applicable) - Davie Tom MD Any changes to Pre-Anesthetic Assessment?: No Last Intake: Intake Last Liquid Date 02/25/22 Last Liquid Time 20:00 Last Solid Date 02/25/22 Last Solid Time 20:00 Labs Last 48hrs: Short CBC 02/26/22 Range/Units 08:40 WBC 5.5 (4.0-10.0) 10^3/ uL Hgb 14.4 (11.5-15.3) g/dL Hct 42.3 (37.0-47.0) % MCV 93.6 (81-99) fl Plt Count 279 (130-400) 10^3/c mm Neut % (Auto) 55.2 % Neut # (Auto) 3.06 (1.8-7.7) 10^3/u L Vitals: Temperature 97.5 F L 02/26/22 08:25 Temperature Source Temporal Artery S can 02/26/22 08:25 Pulse Rate 71 02/26/22 08:25 Respiratory Rate 16 02/26/22 08:25 Blood Pressure 126/81 02/26/22 08:25 Blood Pressure Tawny n 96 02/26/22 08:25 Pulse Oximetry 97 02/26/22 08:25 Oxygen Delivery Me thod 02/26/22 08:25 Exam: Pre-Anes Outpt Exam: alert, oriented x 3, clear to auscultation bilaterally and regular rate & rhythm Cardiac Studies: Echocardiogram Ultrasound 06/08/20
[2022-02-26 09:33] LABS: Bilirubin Urine Neg (Negative); Blood Urine Neg (Negative); Glucose Urine UA Norm (Normal); Ketones Urine Negative (Negative); Leukocyte Esterase Urine Negative (Negative); Nitrate Urine Negative (Negative); Protein Urine Neg (Negative); Urine Appearance Clear (CLEAR); Urine Color Yellow (Yellow); Urobilinogen Urine Norm (Negative); pH Urine 5 (5-7)
[2022-02-26 09:36] LABS: Alanine Aminotransferase 19 U/L (0-33); Albumin Level 4.4 g/dL (3.5-5.2); Alkaline Phosphatase 38 IU/L (35-105); Blood Urea Nitrogen 15 mg/dL (6-20); Calcium 9.3 mg/dL (8.5-10.5); Carbon Dioxide 24 mmol/L (22-29); Chloride 105 mmol/L (98-107); Globulin 1.8 g/dL (1.3-4.6); Glomerular Filtration Rate 86.2 mL/min (90-130); Glucose 97 mg/dL (65-115); Osmolality Calculated 291 mOsm/kg (285-295); Sodium 140 mmol/L (136-145); Total Bilirubin 0.3 mg/dL (0.15-1.2); Total Protein 6.2 g/dL (6.6-8.7)
[2022-02-26 09:41] LABS: Anion Gap 15.1 (5-19); Aspartate Amino Transferase 26 U/L (0-32); Potassium 4.1 mmol/L (3.5-5.1)
[2022-02-26] MEDS: vancomycin 1,000 MG in sodium chloride 0.9% 250 ML 250 MG IV (09:41)
[2022-02-26] MEDS: diphenhydrAMINE 50 mg/mL SDV 1mL 12.5 MG IVP (10:10)
--- NOTE | 2022-02-26 10:26 | P.HPUD_ITS ---
Surgery/Procedure H&P Update DATE OF PROCEDURE: February 26, 2022 DATE H&P PERFORMED: 02/11/22 H&P UPDATE INFORMATION: I have reviewed H&P completed within last 30 days, I have examined patient prior to procedure, No changes to prior documentation and [place] [facility] [place] indicated PREOP DIAGNOSIS: Cystocele, pelvic pain, dyspareunia PLANNED PROCEDURE: Operation Date: 02/26/22 09:35 Proposed Procedures p Laparoscopy [id number]/n81.4/n36.41/r10.2/g89.29(Not Applicable) - Davie Tom MD s Anterior Repair with Allograft(Not Applicable) - Davie Tom MD s Sling(Not Applicable) - Davie Tom MD
--- NOTE | 2022-02-26 12:18 | SUR.OPER ---
attempted to contact family with surgical update
[2022-02-26] MEDS: estrogens Conjugated Cream 30 gm 1 APPLIC VAGINAL (12:28)
--- NOTE | 2022-02-26 12:37 | PM.OP ---
Operative Report Date of procedure: February 26, 2022 Pre-op diagnosis: Preop Diagnosis Cystocele, pelvic pain, dyspareunia Post-op diagnosis: Same as above Post-op findings: Omental adhesions Procedure done: Diagnostic laparoscopy. Lysis of adhesions. Anterior colporrhaphy augmented with allograft. Single incision mid urethral sling. Cystoscopy. Specimens removed/disposition: None Surgeon: Davie Tom MD Estimated blood loss (mL): 100 IV fluids (mL): 1,200 Urine output (mL): 600 Findings: Omental adhesions to the anterior abdominal wall Procedure: After informed consent, the patient was taken to the operating room where general anesthesia was administered. The patient was examined under anesthesia and the patient post hysterectomy pelvic exam to be unremarkable. She was placed in the dorsal lithotomy position and prepped and draped in sterile fashion. Pre-Procedure Time-Out verifying the correct patient identity, correct procedure verified with consent, correct site and side, correct patient position, availability of correct implants and any special equipment or requirements was performed and acknowledge by the OR team. A weighted speculum was placed in the Spoinge stick was placed in the vagina. The speculum was removed from the vagina. The an intraumbilical incision was made with a scalpel. While tenting up on the abdomen, a Verres needle with sleeve was admitted into the intra-abdominal cavity. A saline drop test was performed and noted to be within normal limits. Pneumoperitoneum was attained with 4 liters of carbon dioxide. The Verres needle was removed. A 5 mm trocar and sleeve were admitted into the abdomen and laparoscopic confirmation of location was achieved, A second incision was made 3 cm above the symphysis pubis, and a 5 mm trocar and sleeve were admitted into the abdomen under direct, laparoscopic visualization without complication. A survey revealed omental adhesions to the anterior abdominal wall and pelvic survey shows omental adhesions to left pelvic wall. A 5 mm blunt probe was advanced through the second trocar sleeve, and light manipulation to assess the the pelvis was performed. With the Voyant laparoscopic 5 mm device the adhesions were lysed without complication or significant bleeding. Then the carbon dioxide was allowed to escape from the abdomen. The trocar incisions were closed with 3-0 Vicryl and Dermabond. Then proceeded to perform the planned anterior colporrhaphy augmented with allograft and single incision mid urethral sling. A vertical midline incision was made beneath the midurethra, nearly 1.5 cm length. Careful submucosal dissection was performed bilaterally up to the interior portion of the inferior pubic ramus. The insertion of adductor longus tendon on the patient?s pubic ramus was identified as reference land ryann. Palpated the notch along the internal edge of ischiopubic ramus where the adductor longus tendon and the inferior pubic ramus meet. The Altis single incision sling (SIS) was selected. Then the needle of the SIS inserted aiming at the location of this notch. One of the integrated self-fixating tips place onto the needle by sliding it over the end of the needle. The needle/sling assembly was inserted toward the location of identified reference notch making sure that the flat of the handle is perpendicular to the desired path. The needle was tracked along the posterior surface of the ischiopubic ramus until the midline ryann on the mesh is approximately at the midline position under the urethra. The needle was removed and the same was repeated on the contralateral side until the appropriate sling tension under the urethra was achieved ensuring that the mesh lays flat. The needle was removed and vaginal incision was closed in a running interlocking fashion with 2-0 Vicryl. Then the anterior colporrhaphy was performed. The vaginal mucosa was then injected in the midline with normal saline. The vaginal mucosa was scored in the midline with the Bovie approximately 1 cm medial to the urethral meatus to 1 cm distal to the [vaginal cuff/cervix]. This vaginal mucosa was then undermined and then incised in the midline with the Metzenbaum scissors. The lateral aspects of the vaginal mucosa were then grasped with the Allis clamps and the vaginal mucosa was then dissected off the underlying fascia with the Metzenbaum scissors. Again, there was noted to be quite a bit of oozing at the incision, which was controlled with cautery. After adequate dissection was performed, bilaterally. An ACell SoFits.MeiStem Pelvic Floor Matrix is modified at time of application to fit spacea, 3 x 3 cm piece . The allograft placed in front of cystocele ready to be implanted with with PDS suture. Suture is placed at distal end of graft and placed towards vaginal cuff. Final suture is placed on proximal portion of the graft to complete the placement overlying the bladder. Then Interrupted vertical mattress sutures of 0 Vicryl were used to elevate the cystocele superiorly. The excessive vaginal mucosa was then trimmed with the Metzenbaum scissors and the vaginal mucosa was then reapproximated in the running interlocking fashion with 2-0 Vicryl. Then the Rodriguez catheter was removed and cystoscope was inserted. The bladder was filled with sterile water. Complete evaluation of the bladder mucosa was performed noting no lacerations, dimpling, tears, bleeding of the mucosa or muscular layers. Both ureteral orifices were identified. Prompt excretion of urine from both ureteral orifices was noted. Cystoscope was withdrawn. The Rodriguez catheter was replaced. Excellent hemostasis was obtained. A vaginal pack is placed overnight as postoperative support for the vaginal tissues after graft placement and closure of vaginal incisions. Sponge, lap, needle, and instrument counts were correct times three. The patient was taken to the recovery room, awake and in stable condition. Related Problem List Diagnoses (1) Dyspareunia, female: (2) Chronic pelvic pain in female: (3) Cystocele with prolapse:
--- NOTE | 2022-02-26 13:22 | SUR.PHASEI ---
1304 SCDS ON AND PUMP WORKING
[2022-02-26] MEDS: ketorolac 30 mg/mL INJ IVP ×2 (14:31→19:54)
[2022-02-26] MEDS: dextrose 5%-lactated ringers 1,000 ML 125 ML IV ×2 (14:32→21:51)
--- NOTE | 2022-02-26 16:22 | ANE.PACU2 ---
Inpatient post-anesthesia follow up: Airway intact: Yes Vital signs: Temperature 97.5 F Pulse Rate 77 Respiratory Rate 16 Blood Pressure 103/68 Pulse Oximetry 89 Oxygen Delivery Me thod Nasal Cannula Oxygen Flow Rate 1 Fraction of Inspir ed Oxygen Hydration adequate: Yes Nausea and vomiting: No Pain level: 2 Mental status: Baseline Additional Comments: Just after extubation patient had significant laryngospasm requiring succ/lido
[2022-02-26] MEDS: HYDROcodone-acetaminophen 5-325 mg Tablet PO ×2 (16:47→18:21)
[2022-02-26] MEDS: fluoxetine 20 mg Capsule 40 MG PO (18:13)
[2022-02-26] MEDS: CLONazepam 1 mg Tablet 0.5 MG PO (18:13)
[2022-02-26] MEDS: docusate sodium 100 mg Capsule PO (18:14)
[2022-02-26] MEDS: trazodone 100 mg Tablet PO (21:51)
[2022-02-27] MEDS: HYDROcodone-acetaminophen 5-325 mg Tablet PO ×2 (01:19→08:27)
[2022-02-27 01:20] VITALS: BP 106/64; PULSE 71; RESP 16; TEMP 36.6; O2SAT 95
[2022-02-27] MEDS: ketorolac 30 mg/mL INJ IVP (03:00)
[2022-02-27 05:20] VITALS: BP 116/71; PULSE 67; RESP 16; TEMP 36.6; O2SAT 96
[2022-02-27] MEDS: multivitamin therapeutic Tablet 1 TAB PO (05:53)
[2022-02-27] MEDS: fluoxetine 20 mg Capsule 40 MG PO (05:53)
[2022-02-27 06:05] LABS: Hematocrit 38.8 % (37.0-47.0); Hemoglobin 12.6 g/dL (11.5-15.3); Mean Corpuscular HGB Conc 32.5 g/dL (30.0-36.0); Mean Corpuscular Hemoglobin 31.7 pg (28.0-34.0); Mean Corpuscular Volume 97.5 fl (81-99); Mean Platelet Volume 10.1 fL (7.4-10.4); Platelet Count 248 10^3/cmm (130-400); Red Blood Count 3.98 10^6/uL (4.1-5.3); Red Cell Distribution Width 12.6 % (12.1-15.1); White Blood Count 12.3 10^3/uL (4.0-10.0)
--- NOTE | 2022-02-27 06:05 | PC.NURSE ---
this nurse removed vaginal packing and Rodriguez catheter @ 0530 on 02/27/22
[2022-02-27 08:17] VITALS: PULSE 80; RESP 16; O2SAT 98
[2022-02-27] MEDS: fluticasone nasal spray 16gm Btl 2 SPRAY INTRANASAL (08:26)
[2022-02-27] MEDS: cholecalciferol (vitamin D3) 1,000 unit Tablet 2000 UNIT PO (08:27)
[2022-02-27] MEDS: CLONazepam 1 mg Tablet 0.5 MG PO (08:27)
[2022-02-27] MEDS: aspirin 81 mg EC Tablet PO (08:28)
[2022-02-27] MEDS: docusate sodium 100 mg Capsule PO (08:28)
[2022-02-27] MEDS: donepezil 5 MG Tablet 10 MG PO (08:28)
[2022-02-27] MEDS: estradiol 1 mg Tablet 0.5 MG PO (08:28)
[2022-02-27] MEDS: bumetanide 1 mg Tablet 0.5 MG PO (08:29)
--- NOTE | 2022-02-27 09:00 | PC.NURSE ---
Pt up to bathroom to void and missed urine hat.
--- NOTE | 2022-02-27 11:01 | PM.OBGYDC ---
Discharge Providers CERTIFIED ART THERAPIST Date of Admission: 02/26/22 13:13 Date of Discharge: 02/27/22 Attending Provider at Admission: Davie Tom MD Attending Provider at Discharge: Davie Tom MD Primary Care Provider: Rachel Whittington DO Diagnoses at Discharge Discharge Diagnosis (1) Dyspareunia, female: Status: Acute (2) Chronic pelvic pain in female: Status: Acute (3) Cystocele with prolapse: Status: Acute Reason for Visit Reason for Visit: cystocele,urethral hypermobility, pelvic pain Hospital Course Hospital Course Mrs. Castro 56-year-old female with chronic pelvic pain, dyspareunia, cystocele and stress incontinence was admitted for planned diagnostic laparoscopy, anterior colporrhaphy and single incision mid urethral sling. The procedures were performed without complication. Doing diagnostic laparoscopy omental adhesions to the anterior abdominal wall were noted and lysed. Postop overnight observation was uneventful. Adequate urine output. Tolerating diet well. Ambulating without difficulty. She is afebrile and hemodynamically stable postoperative day 1. She voided 200 mL after discontinuation of Rodriguez catheter and had a PVR of 12 mL. Postop precautions were given and was instructed to follow-up in 2 weeks. Physical Exam Narrative: GA: Alert and oriented ?3. HEENT: WNL. Heart: Regular rate and rhythm. Lungs: Clear to auscultation bilaterally. Abdomen: Bowel sounds present, minimal tenderness, incision clean and dry, no redness, pain or edema. PHARMACOLOGIST: No bleeding. Extremities: No edema, no cyanosis, no calves pain. Urinary Catheter Management: Rodriguez Latex Free: Cath Placed During This Visit: yes, but has since been removed by the nurse Reason for Continuing Indwelling Catheter: Decision to DC Catheter Urinary Catheter Date of Insertion: 02/26/22 Urinary Catheter Time of Insertion: 11:02 Date Urinary Catheter Removed: 02/27/22 Time Urinary Catheter Discontinued: 05:30 History History History 1 Term 0 Miscarriages/Ectopic 1 0 Living Children 0 Discharge Data Studies Completed and Pending Pending at discharge Category Date Time Status ES surgery / GI images Routine Exams 02/26/22 10:13 Taken Laboratory Results WBC 12.3 10^3/uL (4.0-10.0) H 02/27/22 05:45 RBC 3.98 10^6/uL (4.1-5.3) L 02/27/22 05:45 Hgb 12.6 g/dL (11.5-15.3) 02/27/22 05:45 Hct 38.8 % (37.0-47.0) 02/27/22 05:45 MCV 97.5 fl (81-99) 02/27/22 05:45 MCH 31.7 pg (28.0-34.0) 02/27/22 05:45 MCHC 32.5 g/dL (30.0-36.0) 02/27/22 05:45 RDW 12.6 % (12.1-15.1) 02/27/22 05:45 Plt Count 248 10^3/cmm (130-400) 02/27/22 05:45 MPV 10.1 fL (7.4-10.4) 02/27/22 05:45 Neut % (Auto) 55.2 % 02/26/22 08:40 Lymph % (Auto) 33.6 % 02/26/22 08:40 [place] % (Auto) 9.6 % 02/26/22 08:40 Eos % (Auto) 0.9 % 02/26/22 08:40 Baso % (Auto) 0.5 % 02/26/22 08:40 Neut # (Auto) 3.06 10^3/uL (1.8-7.7) 02/26/22 08:40 Lymph # (Auto) 1.9 10^3/uL (0.8-4.8) 02/26/22 08:40 [place] # (Auto) 0.5 10^3/uL (0.2-0.9) 02/26/22 08:40 Eos # (Auto) 0.1 10^3/uL (0.0-0.8) 02/26/22 08:40 Baso # (Auto) 0.0 10^3/uL (0.0-0.1) 02/26/22 08:40 Nucleated RBC % (auto) 0 % 02/26/22 08:40 Nucleated RBCs # 0.0 /100WBC 02/26/22 08:40 Sodium 140 mmol/L (136-145) 02/26/22 08:40 Potassium 4.1 mmol/L (3.5-5.1) 02/26/22 08:40 Chloride 105 mmol/L (98-107) 02/26/22 08:40 Carbon Dioxide 24 mmol/L (22-29) 02/26/22 08:40 Anion Gap 15.1 (5-19) 02/26/22 08:40 BUN 15 mg/dL (6-20) 02/26/22 08:40 Creatinine 0.7 mg/dL (0.5-0.9) 02/26/22 08:40 GFR Calculation 86.2 mL/min (90-130) L 02/26/22 08:40 Glucose 97 mg/dL (65-115) 02/26/22 08:40 Calculated Osmolality 291 mOsm/kg (285-295) 02/26/22 08:40 Calcium 9.3 mg/dL (8.5-10.5) 02/26/22 08:40 Total Bilirubin 0.3 mg/dL (0.15-1.2) 02/26/22 08:40 AST 26 U/L (0-32) 02/26/22 08:40 ALT 19 U/L (0-33) 02/26/22 08:40 Alkaline Phosphatase 38 IU/L (35-105) 02/26/22 08:40 Total Protein 6.2 g/dL (6.6-8.7) L 02/26/22 08:40 Albumin 4.4 g/dL (3.5-5.2) 02/26/22 08:40 Globulin 1.8 g/dL (1.3-4.6) 02/26/22 08:40 Urine Color Yellow (Yellow) 02/26/22 08:40 Urine Appearance Clear (CLEAR) 02/26/22 08:40 Urine pH 5 (5-7) 02/26/22 08:40 Ur Specific [place] 1.020 (1.005-1.030) 02/26/22 08:40 Urine Protein Neg (Negative) 02/26/22 08:40 Urine Glucose (UA) Norm (Normal) 02/26/22 08:40 Urine Ketones Negative (Negative) 02/26/22 08:40 Urine Blood Neg (Negative) 02/26/22 08:40 Urine Nitrate Negative (Negative) 02/26/22 08:40 Urine Bilirubin Neg (Negative) 02/26/22 08:40 Urine Urobilinogen Norm mg/dL (Negative) 02/26/22 08:40 Ur Leukocyte Esterase Negative (Negative) 02/26/22 08:40 Blood Type AB Positive 02/26/22 08:40 Rho(D) Type Positive 02/26/22 08:40 Antibody Screen Negative 02/26/22 08:40 Vitals Last Vital Signs Temp 97.9 F 02/27/22 05:20 Pulse 80 02/27/22 08:17 Resp 16 02/27/22 08:17 BP 116/71 02/27/22 05:20 Pulse Ox 98 02/27/22 08:17 Discharge Plan Discharge Patient Disposition: Home Condition: Stable Prescriptions: New hydrocodone-acetaminophen 5-325 mg tablet 1 tab PO Q4H PRN (Reason: pain) Qty: 15 0RF acetaminophen 325 mg capsule 325 mg PO Q4H PRN (Reason: fever or pain) Qty: 60 0RF ibuprofen 800 mg tablet 800 mg PO TID PRN (Reason: pain) Qty: 60 0RF Continued acetaminophen 650 mg tablet extended release 650 mg PO Q12H PRN (Reason: mod pain) 0RF Sinus Relief Severe Congestion 5-325-200 mg tablet 1 tab PO BID 0RF ascorbate calcium (vitamin C) 500 mg tablet 500 mg PO DAILY 0RF B12 Active 1,000 mcg tablet,chewable 500 mcg PO DAILY 0RF restful legs 1 tab PO DAILY 0RF leg cramps 1 tab PO DAILY 0RF aspirin [Adult Low Dose Aspirin] 81 mg tablet,delayed release (DR/EC) 81 mg PO DAILY 0RF ascorbic acid-elderberry fruit [Airborne (elderberry)] 100-50 mg tablet,chewable 1 tab PO DAILY 0RF (DME) nebulizer See Rx Instructions .Route .MEDSUPPLY Qty: 1 0RF Rx Instructions: Tubing and supplies (DME) sole supports See Rx Instructions .Route .MEDSUPPLY Qty: 1 0RF Rx Instructions: As directed (DME) aso See Rx Instructions .Route .MEDSUPPLY Qty: 1 0RF Rx Instructions: As directed (DME) Night Splint to the right See Rx Instructions .Route .MEDSUPPLY Qty: 1 0RF Rx Instructions: As directed donepezil 10 mg tablet 10 mg PO DAILY Qty: 30 5RF multivitamin Tablet 1 tab PO QAM 0RF biotin 1 mg capsule 1 mg PO DAILY 0RF cholecalciferol (vitamin D3) 25 mcg (1,000 unit) capsule 50 mcg PO DAILY 0RF dicyclomine 10 mg capsule 10 mg PO TID Qty: 90 1RF (JUAN) GEORGE KURTZ See Rx Instructions .Route .MEDSUPPLY Qty: 1 0RF Rx Instructions: As directed acyclovir 400 mg tablet 400 mg PO TID Qty: 21 5RF Rx Instructions: Take at onset of symptoms budesonide-formoterol [Symbicort] 160-4.5 mcg/actuation HFA aerosol inhaler 2 inh inhalation BID Qty: 10.2 5RF fluticasone propionate [Allergy Relief (fluticasone)] 50 mcg/actuation spray,suspension 2 spray INTRANASAL DAILY Qty: 15.8 5RF cimetidine [Tagamet HB] 200 mg tablet 200 mg PO DAILY 0RF fluoxetine [Prozac] 40 mg capsule 40 mg PO QAM Qty: 30 6RF Rx Instructions: Take one capsule every morning trazodone 100 mg tablet 100 mg PO DIRECTED PRN (Reason: sleep) Qty: 30 3RF Rx Instructions: Take one tablet one hour prior to bedtime as needed for sleep. estradiol 0.5 mg tablet 0.5 mg PO DAILY Qty: 90 1RF clonazepam [Klonopin] 0.5 mg tablet 0.5 mg PO BID Qty: 60 3RF Rx Instructions: Take one tablet twice per day bumetanide 0.5 mg tablet See Rx Instructions .ROUTE .COMPLEX Qty: 90 0RF Dose Instruction: Take 1 tablet by mouth once daily Rx Instructions: Take 1 tablet by mouth once daily Discharge Orders: Discharge Order (Routine); Ordered 02/27/22 Ordered By: Davie Tom Discharge Diet: Advance as tolerated and Usual diet Discharge Activity: Limit activity as instructed Patient Instructions: Hydrocodone/Acetaminophen (By mouth) (Vicodin, [place], Lortab), Bladder Sling for Women (DC), Anterior Vaginal Repair (DC), OB Discharge Report, Opioid Safety, Exploratory Laparoscopy (GEN), Lysis of Abdominal Adhesions (GEN) Activity Restrictions/Additional Instructions: 1. Please call [facility] clinic on next working day to make your post-operative appointment in 2 weeks. 2. Please stay home until you come back to the clinic on first post-operative check up. 3. Please follow instructions on your medications CAREFULLY. 4. If you have abdominal incision, do not cover it unless dressing is necessary because of drainage. OK to shower, but avoid bath. Leave steri-strips until they fall off. If they are still on one week after surgery, you may remove them. 5. If you had vaginal surgery or vaginal repair, Dr. Tom may instruct you to take SITZ bath. 6. Yellow, blood tinged odorous vaginal discharge is usually normal after hysterectomy or vaginal surgeries. 7. No sexual intercourse, tampons, or douches until you are completely released from the post-operative care. 8. Avoid constipation by eating right and maybe using some Metamucil or Milk of Magnesia. 9. All prescription refills are given during the working hours. Please do no wait till it runs out. Call the clinic at [phone] before your medication runs out. The clinic will get in touch with your doctor to prescribe medications if necessary. 10. Please remain within 40 mile radius from our hospital because emergencies do happen now and then during the post-operative period. 11. If you have stairs at home, take one step at a time slowly and minimize the number of trips. It helps to stay in one floor for the next few days. No lifting except what you can lift by one hand until you are released from the post-operative care. 12. Driving is discouraged until you are well healed. It may be 3-4 weeks before you feel strong enough to drive. You should be able to turn and look through the rear window without pain and you should be able to push the brake pedal very hard without pain before you drive. No fast rules, but SAFETY should be your primary concern. DO NOT drive if you are on sedating medications such as narcotics. 13. Call the clinic (during working hours) to make urgent appointment or go to the Emergency room, if any of the following occurs: i. Vaginal bleeding becomes heavy, more than a period. ii. Incision becomes red and sore, or drains pus. iii. Your temperature is over 100.4 or you have chill. iv. IV site becomes red and swollen (a little ``knot?? is usually OK) v. Persistent nausea and vomiting vi. Persistent constipation or diarrhea vii. Rash or allergic reaction to medications. Discharge Attestations CERTIFIED ART THERAPIST Time Spent in Discharge Care*: greater than 30 min Coding Level of Care Code Acute Registry Np for g Fwd Diagnoses Dyspareunia, female N94.10 Chronic pelvic pain in female R10.2; G89.29 Cystocele with prolapse N81.4
[2022-02-27 11:52] VITALS: BP 117/76; PULSE 64; RESP 18; TEMP 36.6; O2SAT 99
== END 2022-02-27 12:30 | disposition home or self-care (01) ==
LOC: OBGYN 16:48
PROVIDERS: Admitting Provider Obstetrics & Gynecology; PCP Family Medicine; Visit Provider Obstetrics & Gynecology
PROC: (CPT 49320; principal; 2022-02-26 09:25)
PROC: 0JQC0ZZ Repair Pelvic Region Subcutaneous Tissue and Fascia, Open Approach (ICD-10-PCS; CPT 57240; 2022-02-26 09:25)
PROC: (CPT 57288; 2022-02-26 09:25)
DX: N81.10 Cystocele, unspecified (principal); N94.10 Unspecified dyspareunia; K66.0 Peritoneal adhesions (postprocedural) (postinfection); R10.2 Pelvic and perineal pain; G89.29 Other chronic pain; K21.9 Gastro-esophageal reflux disease without esophagitis; M79.7 Fibromyalgia; F41.9 Anxiety disorder, unspecified; F32.9 Major depressive disorder, single episode, unspecified; G62.9 Polyneuropathy, unspecified; Z79.82 Long term (current) use of aspirin
CPT/HCPCS: 57260; 57288; 36415; 51798; 80053; 81003; 85025; 85027; 86850; 86900; 94640; 94664; C1713; C1762; G0378; J0330; J1100; J1170; J1200; J1885; J2405; J2704; J2710; J3010; J3370; J3490; J7030; J7040; J7050; J8499

== ENCOUNTER 2022-08-05 16:09 | Emergency (ER) | payer OTHER, SELFPAY ==
[2022-08-05 16:30] VITALS: BP 161/85; PULSE 65; RESP 16; O2SAT 100
--- NOTE | 2022-08-05 16:30 | CTR_ITS ---
PROCEDURE INFORMATION: Exam: CT Head Without Contrast Exam date and time: 08/05/2022 5:33 PM Age: 56 years old Clinical indication: Pain; Headache; Additional info: Headache with syncope TECHNIQUE: Imaging protocol: Computed tomography of the head without contrast. Radiation optimization: All CT scans at this facility use at least one of these dose optimization techniques: automated exposure control; mA and/or kV adjustment per patient size (includes targeted exams where dose is matched to clinical indication); or iterative reconstruction. COMPARISON: MR head wo con* [id number] 12/13/2020 3:25 PM RADIATION DOSE METRICS: Total DLP (mGy-cm): 1253.58 FINDINGS: Brain: Normal. No hemorrhage. Unremarkable white matter. No mass effect. Cerebral ventricles: No ventriculomegaly. Paranasal sinuses: Visualized sinuses are unremarkable. No fluid levels. Mastoid air cells: Visualized mastoid air cells are well aerated. Bones/joints: Unremarkable. No acute fracture. Soft tissues: Unremarkable. CT/CT head wo con* [id number] IMPRESSION: No acute intracranial abnormality.
--- NOTE | 2022-08-05 16:31 | XRR_ITS ---
PROCEDURE INFORMATION: Exam: XR Chest Exam date and time: 08/05/2022 4:40 PM Age: 56 years old Clinical indication: Cough; Patient HX: Seizures TECHNIQUE: Imaging protocol: Radiologic exam of the chest. Views: 1 view. COMPARISON: CR XR chest 1V [id number] 10/29/2017 3:20 PM FINDINGS: Lungs: Unremarkable. No consolidation. Pleural spaces: Unremarkable. No pleural effusion. No pneumothorax. Heart/Mediastinum: Unremarkable. No cardiomegaly. Bones/joints: Unremarkable. XR/XR chest 1V portable [id number] IMPRESSION: No acute findings.
--- NOTE | 2022-08-05 16:32 | ECG_ITS ---
[facility] Test Date: 2022-08-05 Pat Name: Gay Castro Department: Room: Gender: Female Admissions Manager Rn: : 1965 Requested By: Davie Harris Order Number: [id number] Ajith MD: Bev Viera M.D. Measurements Intervals [place] Rate: 64 P: 71 CT: 161 QRS: 48 QRSD: 85 T: 54 QT: 418 QTc: 434 Interpretive Statements SINUS RHYTHM Compared to ECG 10/29/2017 14:09:05 No significant changes Electronically Signed On 08-05-2022 20:45:53 CDT by Bev Viera M.D. [id number]
[2022-08-05] MEDS: sodium chloride 0.9% 1,000 ML 999 ML IV (16:45)
--- NOTE | 2022-08-05 16:51 | W.ED.SYNCOPE ---
HPI - Syncope General: Chief Complaint: Syncope Stated Complaint: SYNCOPAL EPISODE/ SEIZURE Time Seen by Provider: 08/05/22 16:15 Source: patient, family and EMS Mode of arrival: EMS Limitations: no limitations History of Present Illness: This patient was transferred to our emergency department from a local clinic. History is obtained both from the patient, EMS as well as the spouse who is now present. Reportedly patient's been sick for the last week or so with cough congestion and other respiratory symptoms. Over the last couple of days she has had a headache of gradual onset consistent with previous migraine type headaches. Today she was at the clinic for evaluation of her symptoms and apparently was standing or just do it and was walking to the laboratory when she suffered a syncopal episode. She was observed to have reported brief seizure activity immediately ceased spontaneously. She did not suffer any injury as a result of her syncopal episode. Patient relates that she has had respiratory symptoms as noted above. She does have a history of asthma. Her has not been ill and they have not been exposed to any illness that they are aware. They are of not immunized against COVID and have not had COVID that they are aware. She denies any episodes of palpitations, chest pain etc. Witnessed: Yes - by Bystander Associated symptoms: Reports fever(s) and headache(s); Deny abdominal pain, chest pain, lightheadedness or nausea Review of Systems Const: Reports: fever(s), chills and body aches Eyes: Denies: change in vision ENMT: Reports: nasal congestion; Denies: throat pain or odynophagia Card: Reports: syncope; Denies: chest pain, palpitations, irregular heart rhythm or lightheadedness Resp: Reports: non-productive cough; Denies: dyspnea GI: Denies: abdominal pain, nausea or vomiting : Denies: flank pain, difficulty voiding, dysuria or urinary frequency Musc: Denies: neck pain, back pain, extremity pain or extremity swelling Skin/Breast: Denies: rash, pruritus or erythema Neuro: Reports: headache(s) and seizure-like activity; Denies: numbness in extremities, weakness in extremities, dizziness or Slurred speech present Psych: Denies: anxiety or depression Endo: Denies: polyuria [facility] ED PFSH: Medical History Aftercare following surgery of the genitourinary system Bereavement Loss of father Fibromyalgia Generalized anxiety disorder Genital herpes Major depressive disorder, recurrent severe without psychotic features Psychiatric care Surgical History H/O laparoscopy 02/26/2022- diagnostic laparoscopy augmented with allograft, single incision mid urethral sling and cystoscopy, performed by Dr. Tom at [facility] H/O spinal fusion H/O: hysterectomy History of laminectomy S/P appendectomy S/P cholecystectomy S/P tonsillectomy and adenoidectomy Family History Sister Bleeding disorder Harris syndrome Diabetes Clotting disorder Hyperlipidemia Hypertension Thyroid disease hypothyroidism Mother CAD (coronary artery disease) Hyperlipidemia Hypertension Stroke Father Cancer Prostate Family/Other Cancer 2 paternal uncles--lymphoma Diabetes Maternal uncle Other Lung disease Psychiatric illness Denies family history of Chronic kidney disease (CKD) Social History Smoking and tobacco status: never smoked Alcohol intake: never History of recent travel: No Physical Exam Narrative: EXAM NARRATIVE: She is alert and cooperative and is able to answer questions in a goal-directed fashion. Const: COMMON NORMALS: no acute distress, average body habitus, patient oriented x3 and alert GENERAL APPEARANCE: cooperative HENMT: COMMON NORMALS: normocephalic, atraumatic, moist oral mucous membranes and oropharynx normal HEAD & SCALP: normocephalic and atraumatic; no contusion, no laceration and no scalp tenderness FACE & SINUS: normal facial exam Eye: COMMON NORMALS: Equal, round and reactive pupils present, EOMs intact bilaterally and conjunctivae normal CONJUNCTIVA: Yes conjunctivae normal PUPIL: Yes Equal, round and reactive pupils present Neck/C-Spine: COMMON NORMALS: full ROM, no lymphadenopathy, supple, no meningeal signs and no JVD CERVICAL SPINE: Yes cervical ROM normal, No Paracervical muscle tenderness, No Paracervical spasm and No Trapezius muscle tenderness Lymph: LYMPHATIC: no lymphadenopathy noted Chest: COMMONS NORMALS: normal inspection of the chest and normal palpation of entire chest wall Resp: COMMON NORMALS: normal respiratory effort and No use of accessory muscles AUSCULTATION: no rales, rhonchi (Scattered intermittent) and no wheezes Cardio: COMMON NORMALS: no JVD, regular rate, regular rhythm, No murmurs present (Cardio) and Peripheral pulses 2+ throughout RATE: regular rate RHYTHM: regular rhythm PERIPHERAL PULSES: Peripheral pulses 2+ throughout GI: COMMON NORMALS: Normal to inspection, nondistended, normoactive bowel sounds present, Soft to palpation, non-tender and no masses PALPATION: Yes Soft to palpation : COMMON NORMALS: Yes no CVA tenderness BLADDER/KIDNEY EXAM: Yes no CVA tenderness Back/Pelvis: COMMON NORMALS: no CVA tenderness, thoracic and lumbar spine normal to inspection, no thoracic nor lumbar tenderness and thoraco-lumbar ROM normal Extremity: COMMON NORMALS: normal to inspection, full ROM, capillary refill normal, no calf tenderness and no pedal edema Neuro: COMMON NORMALS: patient oriented x3, moves all extremities, no focal motor deficits and no sensory deficits noted SENSORIUM/ORIENTATION: Yes alert MENINGEAL SIGNS: Yes no meningeal signs CRANIAL NERVES: Yes CN normal except as noted SPEECH: speech normal Psych: COMMON NORMALS: mental status grossly normal and cooperative Skin: COMMON NORMALS: no rashes or lesions noted, no wounds and turgor normal GENERAL SKIN EXAM: no rashes or lesions noted and turgor normal Course Reevaluation(s): Reevaluation #1: States headache is some better but not completely resolved. We reviewed her current findings and the lack of suggestion of serious illness based upon her clinical evaluation and those findings. We will give her a typical migraine cocktail to see if we can improve her symptoms. Would strongly suggest bronchitis at this time given her cough somewhat some wheezing at times and history of same. Chest x-ray is reassuring and other parameters are also reassuring. Time: 19:20 Reevaluation #2: Patient subjectively is improved and desires to be discharged. At this point repeat examination reveals her to be alert conversant and cooperative. No respiratory distress no other new or focal findings on repeat examination to include a normal neurologic examination. Her laboratories were reviewed again and those results shared with both she and her . Imaging studies were also reviewed and shared with both patient and spouse. She is stable improved drinking fluids not having any worrisome findings and we will plan on discharging her treating her for her brought viral bronchitis. Time: 20:46 Vital Signs: Vital signs: Vital Signs Pulse Rate 63 08/05/22 17:48 Respiratory Rate 16 08/05/22 17:48 Blood Pressure 155/82 08/05/22 17:48 Pulse Oximetry 98 08/05/22 17:48 Oxygen Delivery Me thod 08/05/22 17:48 MDM - Syncope Medical Decision Making Patient had a syncopal episode while at a doctor's office after being ill for several days with poor intake low-grade fevers and cough. She apparently suffered a syncopal episode and a brief post syncopal seizure without any sequelae. Her evaluation here reveals to be COVID-negative, CT is negative, chest x-ray is negative and all laboratory parameters were reassuring. She received the benefit of IV fluids migraine cocktail for her headache which came as a result of several days of illness and was not an acute onset headache and was consistent with her prior headache history. She improved significantly with treatment and was stable to be discharged and that was her preference rather than any prolonged observation or admission. Plan will be to discharge her on prednisone as well as an albuterol inhaler for her to continue her Symbicort and also continue oral hydration with return precautions discussed in detail. Lab Data : 08/05/22 16:55 08/05/22 16:[address] 08/05/22 16:30 IMPRESSION: No acute intracranial abnormality. Chest X-Ray 08/05/22 16:31 IMPRESSION: No acute findings. Laboratory Results WBC 9.5 10^3/uL (4.0-10.0) 08/05/22 16:55 RBC 4.57 10^6/uL (4.1-5.3) 08/05/22 16:55 Hgb 14.3 g/dL (11.5-15.3) 08/05/22 16:55 Hct 43.3 % (37.0-47.0) 08/05/22 16:55 MCV 94.7 fl (81-99) 08/05/22 16:55 MCH 31.3 pg (28.0-34.0) 08/05/22 16:55 MCHC 33.0 g/dL (30.0-36.0) 08/05/22 16:55 RDW 12.6 % (12.1-15.1) 08/05/22 16:55 Plt Count 285 10^3/cmm (130-400) 08/05/22 16:55 MPV 9.6 fL (7.4-10.4) 08/05/22 16:55 Neut % (Auto) 66.1 % 08/05/22 16:55 Lymph % (Auto) 23.9 % 08/05/22 16:55 [place] % (Auto) 8.7 % 08/05/22 16:55 Eos % (Auto) 0.6 % 08/05/22 16:55 Baso % (Auto) 0.3 % 08/05/22 16:55 Neut # (Auto) 6.27 10^3/uL (1.8-7.7) 08/05/22 16:55 Lymph # (Auto) 2.3 10^3/uL (0.8-4.8) 08/05/22 16:55 [place] # (Auto) 0.8 10^3/uL (0.2-0.9) 08/05/22 16:55 Eos # (Auto) 0.1 10^3/uL (0.0-0.8) 08/05/22 16:55 Baso # (Auto) 0.0 10^3/uL (0.0-0.1) 08/05/22 16:55 Nucleated RBC % (auto) 0 % 08/05/22 16:55 Nucleated RBCs # 0.0 /100WBC 08/05/22 16:55 Sodium 138 mmol/L (136-145) 08/05/22 16:55 Potassium 4.1 mmol/L (3.5-5.1) 08/05/22 16:55 Chloride 103 mmol/L (98-107) 08/05/22 16:55 Carbon Dioxide 25 mmol/L (22-29) 08/05/22 16:55 Anion Gap 14.1 (5-19) 08/05/22 16:55 BUN 17 mg/dL (6-20) 08/05/22 16:55 Creatinine 0.7 mg/dL (0.5-0.9) 08/05/22 16:55 GFR Calculation 86.2 mL/min (90-130) L 08/05/22 16:55 Glucose 95 mg/dL (65-115) 08/05/22 16:55 Calculated Osmolality 287 mOsm/kg (285-295) 08/05/22 16:55 Calcium 8.9 mg/dL (8.5-10.5) 08/05/22 16:55 Total Bilirubin 0.2 mg/dL (0.15-1.2) 08/05/22 16:55 AST 22 U/L (0-32) 08/05/22 16:55 ALT 19 U/L (0-33) 08/05/22 16:55 Alkaline Phosphatase 44 U/L (35-105) 08/05/22 16:55 Total Protein 6.4 g/dL (6.6-8.7) L 08/05/22 16:55 Albumin 4.0 g/dL (3.5-5.2) 08/05/22 16:55 Globulin 2.4 g/dL (1.3-4.6) 08/05/22 16:55 Urine Color Yellow (Yellow) 08/05/22 17:40 Urine Appearance Clear (CLEAR) 08/05/22 17:40 Urine pH 7 (5-7) 08/05/22 17:40 Ur Specific [place] 1.005 (1.005-1.030) 08/05/22 17:40 Urine Protein Neg (Negative) 08/05/22 17:40 Urine Glucose (UA) Norm (Normal) 08/05/22 17:40 Urine Ketones 1+ (Negative) H 08/05/22 17:40 Urine Blood Neg (Negative) 08/05/22 17:40 Urine Nitrate Negative (Negative) 08/05/22 17:40 Urine Bilirubin Neg (Negative) 08/05/22 17:40 Urine Urobilinogen Neg mg/dL (Negative) 08/05/22 17:40 Ur Leukocyte Esterase Negative (Negative) 08/05/22 17:40 SARS-CoV-2 Ag (Rapid) Negative (Negative) 08/05/22 16:40 Discharge Plan Discharge Patient Disposition: Home Clinical Impression: Syncope, Bronchitis Condition: Stable Prescriptions: New prednisone 20 mg tablet 20 mg PO BID 5 Days Qty: 10 0RF ProAir HFA 90 mcg/actuation HFA aerosol inhaler 2 inh inhalation QID PRN (Reason: shortness of breath or wheezing) Qty: 8.5 1RF No Action acetaminophen 650 mg tablet extended release 650 mg PO Q12H PRN (Reason: mod pain) Sinus Relief Severe Congestion 5-325-200 mg tablet 1 tab PO BID ascorbate calcium (vitamin C) 500 mg tablet 500 mg PO DAILY B12 Active 1,000 mcg tablet,chewable 500 mcg PO DAILY aspirin [Adult Low Dose Aspirin] 81 mg tablet,delayed release (DR/EC) 81 mg PO DAILY ascorbic acid-elderberry fruit [Airborne (elderberry)] 100-50 mg tablet,chewable 1 tab PO DAILY (DME) nebulizer See Rx Instructions .Route .MEDSUPPLY Qty: 1 0RF Rx Instructions: Tubing and supplies (DME) sole supports See Rx Instructions .Route .MEDSUPPLY Qty: 1 0RF Rx Instructions: As directed (DME) aso See Rx Instructions .Route .MEDSUPPLY Qty: 1 0RF Rx Instructions: As directed (DME) Night Splint to the right See Rx Instructions .Route .MEDSUPPLY Qty: 1 0RF Rx Instructions: As directed multivitamin Tablet 1 tab PO QAM biotin 1 mg capsule 1 mg PO DAILY cholecalciferol (vitamin D3) 25 mcg (1,000 unit) capsule 50 mcg PO DAILY (DME) CAM WALKER See Rx Instructions .Route .MEDSUPPLY Qty: 1 0RF Rx Instructions: As directed budesonide-formoterol [Symbicort] 160-4.5 mcg/actuation HFA aerosol inhaler 2 inh inhalation BID Qty: 10.2 5RF fluticasone propionate [Allergy Relief (fluticasone)] 50 mcg/actuation spray,suspension 2 spray INTRANASAL DAILY Qty: 15.8 5RF fluoxetine [Prozac] 40 mg capsule 40 mg PO QAM Qty: 30 6RF Rx Instructions: Take one capsule every morning quetiapine [Seroquel] 25 mg tablet 25 mg PO BEDTIME Qty: 30 1RF Rx Instructions: May take one tablet at bedtime cetirizine [Zyrtec] 10 mg tablet 10 mg PO DAILY Qty: 90 1RF clonazepam [Klonopin] 0.5 mg tablet 0.5 mg PO BID Rx Instructions: Take one tablet at 8 am and 4 pm tizanidine 4 mg tablet 4 mg PO TID PRN (Reason: muscle spasticity) Qty: 90 0RF estradiol 0.01 % (0.1 mg/gram) cream 1 appful vaginal .see notes Qty: 42.5 1RF Rx Instructions: 1 applicator per vagina twice a week, total 2 months estradiol 0.5 mg tablet 0.5 mg PO DAILY Qty: 90 1RF donepezil 10 mg tablet 10 mg PO DAILY acyclovir 400 mg tablet 400 mg PO TID PRN (Reason: onset symptoms) trazodone 100 mg tablet 100 mg PO BEDTIME PRN (Reason: sleep) Rx Instructions: Take one tablet one hour prior to bedtime as needed for sleep. bumetanide 0.5 mg tablet 0.5 mg PO DAILY Prozac 20 mg capsule 20 mg PO QAM Rx Instructions: Take one capsule every morning dicyclomine 10 mg capsule 10 mg PO TID PRN (Reason: IBS Symptoms) Discharge Orders: Discharge ED (Routine); Ordered 08/05/22 Ordered By: Davie Harris Referrals: Rachel Whittington DO [Primary Care Provider] - Discharge Diet: Advance as tolerated Discharge Activity: Increase activity as tolerated Patient Instructions: Opioid Safety, Pain Management Activity Restrictions/Additional Instructions: Drink at least 2 quarts of water and/or sports drinks daily in addition to her usual dietary intake. Use the prednisone as prescribed for 5 days and the albuterol inhaler as needed for cough. If you develop any persistent, worsening, new symptoms return to this or the nearest emergency department otherwise follow-up with your regular doctor for routine care. Coding Level of Care Code ED Certified Art Therapist for Lainey Sanon Exam Comprehensive
[2022-08-05 17:07] LABS: Basophils % 0.3 %; Eosinophils # 0.1 10^3/uL (0.0-0.8); Eosinophils % 0.6 %; Hematocrit 43.3 % (37.0-47.0); Hemoglobin 14.3 g/dL (11.5-15.3); Lymphocytes # 2.3 10^3/uL (0.8-4.8); Lymphocytes % 23.9 %; Mean Corpuscular Hemoglobin 31.3 pg (28.0-34.0); Mean Corpuscular Volume 94.7 fl (81-99); Mean Platelet Volume 9.6 fL (7.4-10.4); Monocytes # 0.8 10^3/uL (0.2-0.9); Monocytes % 8.7 %; Neutrophils # 6.27 10^3/uL (1.8-7.7); Neutrophils % 66.1 %; Nucleated Red Blood Cells % 0 %; Platelet Count 285 10^3/cmm (130-400); Red Blood Count 4.57 10^6/uL (4.1-5.3); Red Cell Distribution Width 12.6 % (12.1-15.1); White Blood Count 9.5 10^3/uL (4.0-10.0)
[2022-08-05 17:23] LABS: SARS Covid-2 Antigen Negative (Negative)
[2022-08-05 17:24] LABS: Alanine Aminotransferase 19 U/L (0-33); Alkaline Phosphatase 44 U/L (35-105); Anion Gap 14.1 (5-19); Aspartate Amino Transferase 22 U/L (0-32); Blood Urea Nitrogen 17 mg/dL (6-20); Calcium 8.9 mg/dL (8.5-10.5); Carbon Dioxide 25 mmol/L (22-29); Chloride 103 mmol/L (98-107); Globulin 2.4 g/dL (1.3-4.6); Glomerular Filtration Rate 86.2 mL/min (90-130); Glucose 95 mg/dL (65-115); Osmolality Calculated 287 mOsm/kg (285-295); Potassium 4.1 mmol/L (3.5-5.1); Sodium 138 mmol/L (136-145); Total Bilirubin 0.2 mg/dL (0.15-1.2); Total Protein 6.4 g/dL (6.6-8.7)
[2022-08-05 17:48] VITALS: BP 155/82; PULSE 63; RESP 16; O2SAT 98
[2022-08-05 17:48] LABS: Add Urine Microscopic? NO; Charge for UA Resulting for Rev
[2022-08-05] MEDS: ketorolac 30 mg/mL INJ 15 MG IVP (17:52)
[2022-08-05 17:59] LABS: Bilirubin Urine Neg (Negative); Blood Urine Neg (Negative); Glucose Urine UA Norm (Normal); Ketones Urine 1+ (Negative); Leukocyte Esterase Urine Negative (Negative); Nitrate Urine Negative (Negative); Protein Urine Neg (Negative); Specific Gravity, Urine 1.005 (1.005-1.030); Urine Appearance Clear (CLEAR); Urine Color Yellow (Yellow); Urobilinogen Urine Neg (Negative); pH Urine 7 (5-7)
[2022-08-05] MEDS: metoclopramide 5 mg/mL SDV 2 mL 10 MG IVP (19:27)
[2022-08-05] MEDS: diphenhydrAMINE 50 mg/mL SDV 1mL 12.5 MG IVP (19:27)
[2022-08-05 21:02] VITALS: BP 132/71; PULSE 60; RESP 13; O2SAT 99
[2022-08-05 21:03] VITALS: BP 132/71; PULSE 60; RESP 13; O2SAT 99
== END 2022-08-05 21:04 | disposition home or self-care (01) ==
PROVIDERS: Emergency Provider Emergency Medicine; PCP Family Medicine
DX: R55 Syncope and collapse (principal); J40 Bronchitis, not specified as acute or chronic; Z79.82 Long term (current) use of aspirin; Z20.822 Contact with and (suspected) exposure to COVID-19
CPT/HCPCS: 36415; 70450; 71045; 80053; 81003; 85025; 87426; 93005; 96361; 96374; 96375; 99285; J1200; J1885; J2765; J7030

== ENCOUNTER → 2022-08-13 10:26 | Outpatient (BNVA) | payer OTHER, SELFPAY | PROVIDERS: PCP Family Medicine; Visit Provider Nurse Practitioner Psychiatric/Mental Health | DX: Z79.899 Other long term (current) drug therapy (principal) | CPT/HCPCS: 80061; 83036 ==

== ENCOUNTER 2022-10-15 15:56 | Observation (INO) | payer OTHER, SELFPAY ==
[2022-10-13 08:30] VITALS: BMI 28.8
--- NOTE | 2022-10-13 08:41 | P.ANESASSM_ITS ---
Pre-Anesthetic Assessment Height/Weight: Height 1.68 m Weight 81.193 kg Preop Diagnosis: Cystocele, pelvic pain, dyspareunia Operation Date: 10/15/22 12:00 Proposed Procedures p Midurethral sling revision 75600 T83.712A(Not Applicable) - Davie Tom MD Familial anesthetic complications: none Social No alcohol and No tobacco Exam alert, oriented x 3, clear to auscultation bilaterally and regular rate & rhythm Airway Mallampati: Class II Dentition: full Pulmonary Asthma CV/HEM None reported None reported Hepatic None reported GI Gastroesophageal Reflux Disease Metabolic None reported [facility] [place] Fibromyalgia Neuropsych Seizure (? convulsions from dehydration 2 months ago - Dr. Wood) Anesthetic Plan ASA status: 3 Anesthesia: General Risk of > 500 ml blood loss (7ml/kg in children): No Medications/Allergies Home Medications Medication Instructions Recorded Confirmed Last Taken Type biotin 1 mg capsule 1 mg PO DAILY 04/27/20 10/13/22 10/13/22 History multivitamin 1 tab PO QAM 04/27/20 10/13/22 10/13/22 History acetaminophen 650 mg 650 mg PO Q6H PRN mod pain 11/06/20 10/13/22 10/12/22 History tablet,extended release ascorbate calcium (vitamin C) 500 500 mg PO DAILY 11/06/20 10/13/22 10/13/22 History mg tablet cholecalciferol (vitamin D3) 25 50 mcg PO DAILY 11/06/20 10/13/22 10/13/22 History mcg (1,000 unit) capsule mecobalamin (vitamin B12) 1,000 500 mcg PO DAILY 11/06/20 10/13/22 10/13/22 History mcg chewable tablet (B12 Active) [id number] 1 tab PO BID 11/06/20 10/13/22 10/13/22 History 5 mg-325 mg-200 mg tablet (Sinus Relief Severe Congestion) ascorbic acid 100 mg-elderberry 1 tab PO DAILY 12/21/20 10/13/22 10/12/22 History fruit 50 mg chewable tablet (Airborne (elderberry)) aspirin 81 mg tablet,delayed 81 mg PO DAILY 12/21/20 10/13/22 10/13/22 History release (Adult Low Dose Aspirin) nebulizer #1 ea 03/21/21 09/23/22 Unknown Rx CAM WALKER #1 ea 04/17/21 09/23/22 Unknown Rx aso #1 ea 05/15/21 09/23/22 Unknown Rx sole supports #1 ea 05/15/21 09/23/22 Unknown Rx Night Splint to the right #1 ea 06/26/21 09/23/22 Unknown Rx fluticasone propionate 50 2 spray intranasal DAILY #15.8 mL 10/24/21 10/13/22 10/13/22 Rx mcg/actuation nasal spray,suspension (Allergy Relief (fluticasone)) estradiol 0.5 mg tablet 0.5 mg PO DAILY #90 tabs 12/17/21 10/13/22 10/13/22 Rx fluoxetine 40 mg capsule (Prozac) 40 mg PO QAM #30 caps 04/17/22 10/13/22 10/13/22 Rx cetirizine 10 mg tablet (Zyrtec) 10 mg PO DAILY #90 tabs 06/02/22 10/13/22 10/13/22 Rx albuterol sulfate 90 mcg/actuation 2 inh inhalation QID PRN shortness 08/05/22 10/13/22 10/13/22 Rx aerosol inhaler (ProAir HFA) of breath or wheezing #8.5 grams dicyclomine 10 mg capsule 10 mg PO TID PRN IBS Symptoms 08/05/22 10/13/22 10/12/22 History fluoxetine 20 mg capsule (Prozac) 20 mg PO QAM 08/05/22 10/13/22 10/13/22 History clonazepam 0.5 mg tablet (Klonopin) 0.25 mg PO BID #30 tabs 08/06/22 10/13/22 10/13/22 Rx trazodone 100 mg tablet 100 mg PO BEDTIME PRN sleep #30 08/14/22 10/13/22 10/12/22 Rx tabs acyclovir 400 mg tablet 400 mg PO TID PRN onset symptoms 08/21/22 10/13/22 09/29/22 Rx #90 tabs bumetanide 0.5 mg tablet 0.5 mg PO DAILY #30 tabs 08/21/22 10/13/22 10/13/22 Rx donepezil 10 mg tablet 10 mg PO ONCE 90 days #90 tabs 08/26/22 10/13/22 10/13/22 Rx budesonide-formoterol HFA 160 See Rx Instructions .Route 09/05/22 10/13/22 10/13/22 Rx mcg-4.5 mcg/actuation aerosol .COMPLEX #11 grams inhaler estradiol 0.01% (0.1 mg/gram) See Rx Instructions .Route 09/23/22 10/13/22 10/12/22 Rx vaginal cream .COMPLEX #43 grams tizanidine 4 mg tablet See Rx Instructions .Route 10/13/22 10/13/22 10/12/22 Rx .COMPLEX #90 tabs Allergies Allergy/AdvReac Type Severity Reaction Status Date / Time amoxicillin Allergy Severe Rash Verified 10/13/22 08:23 bupropion [From Wellbutrin] Allergy Severe anaphylaxis Verified 10/13/22 08:23 hydrochlorothiazide Allergy Severe edema, Verified 10/13/22 08:23 sweating latex Allergy Severe rash Verified 10/13/22 08:23 naltrexone Allergy Severe anaphylaxis Verified 10/13/22 08:23 Penicillins Allergy Unknown rash Verified 10/13/22 08:23 prochlorperazine Allergy Unknown Dystonia Verified 10/13/22 08:23 of face seroquel AdvReac ADR-Abdominal Uncoded 10/13/22 08:23 Pain PFSH Anesthesia Medical History Aftercare following surgery of the genitourinary system Bereavement Loss of father Fibromyalgia Generalized anxiety disorder Genital herpes Major depressive disorder, recurrent severe without psychotic features Psychiatric care Surgical History H/O laparoscopy 02/26/2022- diagnostic laparoscopy augmented with allograft, single incision mid urethral sling and cystoscopy, performed by Dr. Tom at [facility] H/O spinal fusion H/O: hysterectomy History of laminectomy S/P appendectomy S/P cholecystectomy S/P tonsillectomy and adenoidectomy Family History Sister Bleeding disorder Harris syndrome Diabetes Clotting disorder Hyperlipidemia Hypertension Thyroid disease hypothyroidism Mother CAD (coronary artery disease) Hyperlipidemia Hypertension Stroke Father Cancer Prostate Family/Other Cancer 2 paternal uncles--lymphoma Diabetes Maternal uncle Other Lung disease Psychiatric illness Denies family history of Chronic kidney disease (CKD) Social History Smoking and tobacco status: never smoked Alcohol intake: never History of recent travel: No Data Anesthesia Cardiac Studies: Echocardiogram Ultrasound 06/08/20
[2022-10-15] VITALS (17 sets, daily range): BP systolic 108–146; BP diastolic 64–89; PULSE 66–114; RESP 12–19; TEMP 36.2–36.9; O2SAT 92–100
[2022-10-15 12:13] LABS: Add Urine Microscopic? YES; Bilirubin Urine Neg (Negative); Blood Urine Neg (Negative); Glucose Urine UA Norm (Normal); Ketones Urine Negative (Negative); Leukocyte Esterase Urine Negative (Negative); Nitrate Urine Negative (Negative); Protein Urine Trace (Negative); Specific Gravity, Urine 1.015 (1.005-1.030); Urine Appearance Clear (CLEAR); Urine Color Yellow (Yellow); Urobilinogen Urine Norm (Negative); pH Urine 7 (5-7)
[2022-10-15] MEDS: sodium chloride 0.9% 500 ML IV (12:13)
[2022-10-15 12:14] LABS: Add Urine Culture? No; Bacteria Urine TRACE /hpf; Squamous Epithelial Cell Urine 0-4 /hpf (0-5); WBC Urine 0-4 /hpf (0-5)
[2022-10-15 12:30] LABS: Basophils % 0.3 %; Eosinophils # 0.1 10^3/uL (0.0-0.8); Eosinophils % 0.7 %; Hematocrit 43.4 % (37.0-47.0); Hemoglobin 14.1 g/dL (11.5-15.3); Lymphocytes # 1.8 10^3/uL (0.8-4.8); Mean Corpuscular HGB Conc 32.5 g/dL (30.0-36.0); Mean Corpuscular Hemoglobin 31.3 pg (28.0-34.0); Mean Corpuscular Volume 96.2 fl (81-99); Mean Platelet Volume 10.2 fL (7.4-10.4); Monocytes # 0.5 10^3/uL (0.2-0.9); Monocytes % 7.3 %; Neutrophils # 4.72 10^3/uL (1.8-7.7); Neutrophils % 66.6 %; Nucleated Red Blood Cells % 0 %; Platelet Count 284 10^3/cmm (130-400); Red Blood Count 4.51 10^6/uL (4.1-5.3); Red Cell Distribution Width 12.7 % (12.1-15.1); White Blood Count 7.1 10^3/uL (4.0-10.0)
--- NOTE | 2022-10-15 12:42 | W.PM.OPSUD ---
Surgery/Procedure H&P Update DATE OF PROCEDURE: October 15, 2022 DATE H&P PERFORMED: 10/13/22 H&P UPDATE INFORMATION: I have reviewed H&P completed within last 30 days, I have examined patient prior to procedure and No changes to prior documentation PREOP DIAGNOSIS: Mid urethral sling incision erosion PLANNED PROCEDURE: Operation Date: 10/15/22 13:15 Proposed Procedures p Midurethral sling revision 94601 T83.712A(Not Applicable) - Davie Tom MD
[2022-10-15] MEDS: diphenhydrAMINE 50 mg/mL SDV 1mL 12.5 MG IVP (12:47)
[2022-10-15 12:50] LABS: Alanine Aminotransferase 19 U/L (0-33); Albumin Level 3.9 g/dL (3.5-5.2); Alkaline Phosphatase 38 U/L (35-105); Blood Urea Nitrogen 15 mg/dL (6-20); Carbon Dioxide 25 mmol/L (22-29); Chloride 108 mmol/L (98-107); Globulin 2.4 g/dL (1.3-4.6); Glomerular Filtration Rate 85.9 mL/min (90-130); Glucose 93 mg/dL (65-115); Osmolality Calculated 293 mOsm/kg (285-295); Sodium 141 mmol/L (136-145); Total Bilirubin 0.2 mg/dL (0.15-1.2); Total Protein 6.3 g/dL (6.6-8.7)
[2022-10-15] MEDS: vancomycin 1,000 MG in sodium chloride 0.9% 250 ML 250 MG IV (12:50)
[2022-10-15 12:51] LABS: Anion Gap 12.5 (5-19); Aspartate Amino Transferase 25 U/L (0-32); Potassium 4.5 mmol/L (3.5-5.1)
--- NOTE | 2022-10-15 14:49 | PM.OP ---
Operative Report Date of procedure: October 15, 2022 Pre-op diagnosis: Preop Diagnosis Mid urethral sling incision erosion Post-op diagnosis: same Procedure done: Vaginal sling incision revision augmented with allograft. Cystoscopy. Implants: Coloplast allograft Estimated blood loss (mL): 100 IV fluids (mL): 800 Procedure: After obtaining informed consent, the patient was taken to the operating room and placed in the supine position, given general anesthesia, and prepped and draped in sterile fashion. The abdomen, vulva and vagina were prepped and draped in a sterile manner. A time out procedure was performed. The anterior vaginal mucosa beneath the midurethra was infiltrated with 0.5% Marcaine with epinephrine. A vertical midline incision was made beneath the midurethra, nearly 1.5 cm length. Careful submucosal dissection was performed bilaterally to undermine the mucosa superiorly and inferiorly to the mid urethral sling. A small 2x1 cm piece of Coloplast allograft was placed over mid urethral sling and sutured in place with 3-O suture. Then the vaginal incision was closed in a running interlocking fashion with 2-0 Vicryl. Then the Rodriguez catheter was removed and cystoscope was inserted. The bladder was filled with sterile water. Complete evaluation of the bladder mucosa was performed noting no lacerations, dimpling, tears, bleeding of the mucosa or muscular layers. Both ureteral orifices were identified. Prompt excretion of urine from both ureteral orifices was noted. Cystoscope was withdrawn. The Rodriguez catheter was replaced. Excellent hemostasis was obtained. Sponge, lap, needle, and instrument counts were correct times three. The patient was taken to the recovery room, awake and in stable condition.
[2022-10-15] MEDS: fentaNYL 50 mcg/mL INJ 2mL IVP (15:05)
[2022-10-15] MEDS: dextrose 5%-lactated ringers 1,000 ML 125 ML IV (16:19)
[2022-10-15] MEDS: HYDROcodone-acetaminophen 5-325 mg Tablet PO ×2 (16:22→22:24)
[2022-10-15] MEDS: ketorolac 30 mg/mL INJ IVP ×2 (16:22→22:24)
[2022-10-15] MEDS: CLONazepam 0.5 mg Tablet 0.25 MG PO (19:22)
[2022-10-15] MEDS: trazodone 100 mg Tablet PO (21:10)
[2022-10-16] MEDS: dextrose 5%-lactated ringers 1,000 ML 125 ML IV (00:18)
[2022-10-16] MEDS: HYDROcodone-acetaminophen 5-325 mg Tablet PO ×2 (03:58→11:12)
[2022-10-16] MEDS: ketorolac 30 mg/mL INJ IVP (03:58)
[2022-10-16] MEDS: multivitamin therapeutic Tablet 1 TAB PO (05:29)
[2022-10-16] MEDS: fluoxetine 20 mg Capsule 40 MG PO (05:29)
[2022-10-16 05:39] VITALS: BP 136/81; PULSE 63; TEMP 36.4; O2SAT 96
[2022-10-16 05:45] LABS: Hematocrit 37.4 % (37.0-47.0); Hemoglobin 12.1 g/dL (11.5-15.3); Mean Corpuscular HGB Conc 32.4 g/dL (30.0-36.0); Mean Corpuscular Hemoglobin 31.8 pg (28.0-34.0); Mean Corpuscular Volume 98.4 fl (81-99); Mean Platelet Volume 9.8 fL (7.4-10.4); Platelet Count 224 10^3/cmm (130-400); Red Cell Distribution Width 12.8 % (12.1-15.1); White Blood Count 8.9 10^3/uL (4.0-10.0)
--- NOTE | 2022-10-16 06:40 | PC.NURSE ---
bladder scan- 113ml pt voided 200ML
[2022-10-16 08:00] VITALS: BP 128/78; PULSE 60; RESP 18; TEMP 36.6
[2022-10-16] MEDS: cetirizine 10 mg Tablet PO (08:35)
[2022-10-16] MEDS: docusate sodium 100 mg Capsule PO (08:35)
[2022-10-16] MEDS: cholecalciferol (vitamin D3) 1,000 unit Tablet 2000 UNIT PO (08:35)
[2022-10-16] MEDS: ascorbic acid 500 mg Tablet PO (08:36)
[2022-10-16] MEDS: bumetanide 1 mg Tablet 0.5 MG PO (08:36)
[2022-10-16] MEDS: estradiol 1 mg Tablet 0.5 MG PO (08:37)
[2022-10-16] MEDS: aspirin 81 mg EC Tablet PO (08:43)
[2022-10-16] MEDS: CLONazepam 0.5 mg Tablet 0.25 MG PO (08:43)
--- NOTE | 2022-10-16 09:05 | PM.OBGYDC ---
Discharge Providers [employer]ENCE [employer] Date of Admission: 10/15/22 15:56 Date of Discharge: 10/16/22 Attending Provider at Admission: Davie Tom MD Attending Provider at Discharge: Davie Tom MD Primary Care Provider: Rachel Whittington DO Reason for Visit Reason for Visit: T83.712A erosion of implanted urethral mesh Hospital Course Hospital Course Mrs. Castro 57-year-old female status post anterior colporrhaphy and mid urethral sling that developed small incision dehiscence/sling erosion due to premature physical activity. Admitted for mid urethral sling incision revision and repair. The procedure was performed without complication augmented with allograft. Overnight observation was uneventful. Tolerating diet well. Ambulating without difficulty. She is afebrile and hemodynamically stable postoperative day 1. Counseled regarding pelvic rest for 6 weeks (no sex, no tampons, no vaginal douches). Return to the emergency room if any fever, increased bleeding or pain. Physical Exam Narrative: GA: Alert and oriented ?3. HEENT: WNL. Heart: Regular rate and rhythm. Lungs: Clear to auscultation bilaterally. Abdomen: Bowel sounds present, nontender. 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 Extremities: No edema, no cyanosis, no calves pain. Urinary Catheter Management: Latex Free: Cath Placed During This Visit: yes, but has since been removed by the nurse Reason for Continuing Indwelling Catheter: Decision to DC Catheter Urinary Catheter Date of Insertion: 10/15/22 Urinary Catheter Time of Insertion: 13:55 Date Urinary Catheter Removed: 10/16/22 Time Urinary Catheter Discontinued: 05:42 History History History 1 Term 0 0 Miscarriages/Ectopic 1 Living Children 0 Discharge Data Studies Completed and Pending Laboratory Results WBC 8.9 10^3/uL (4.0-10.0) 10/16/22 05:32 RBC 3.80 10^6/uL (4.1-5.3) L 10/16/22 05:32 Hgb 12.1 g/dL (11.5-15.3) 10/16/22 05:32 Hct 37.4 % (37.0-47.0) 10/16/22 05:32 MCV 98.4 fl (81-99) 10/16/22 05:32 MCH 31.8 pg (28.0-34.0) 10/16/22 05:32 MCHC 32.4 g/dL (30.0-36.0) 10/16/22 05:32 RDW 12.8 % (12.1-15.1) 10/16/22 05:32 Plt Count 224 10^3/cmm (130-400) 10/16/22 05:32 MPV 9.8 fL (7.4-10.4) 10/16/22 05:32 Neut % (Auto) 66.6 % 10/15/22 12:10 Lymph % (Auto) 25.0 % 10/15/22 12:10 [place] % (Auto) 7.3 % 10/15/22 12:10 Eos % (Auto) 0.7 % 10/15/22 12:10 Baso % (Auto) 0.3 % 10/15/22 12:10 Neut # (Auto) 4.72 10^3/uL (1.8-7.7) 10/15/22 12:10 Lymph # (Auto) 1.8 10^3/uL (0.8-4.8) 10/15/22 12:10 [place] # (Auto) 0.5 10^3/uL (0.2-0.9) 10/15/22 12:10 Eos # (Auto) 0.1 10^3/uL (0.0-0.8) 10/15/22 12:10 Baso # (Auto) 0.0 10^3/uL (0.0-0.1) 10/15/22 12:10 Nucleated RBC % (auto) 0 % 10/15/22 12:10 Nucleated RBCs # 0.0 /100WBC 10/15/22 12:10 Sodium 141 mmol/L (136-145) 10/15/22 12:10 Potassium 4.5 mmol/L (3.5-5.1) 10/15/22 12:10 Chloride 108 mmol/L (98-107) H 10/15/22 12:10 Carbon Dioxide 25 mmol/L (22-29) 10/15/22 12:10 Anion Gap 12.5 (5-19) 10/15/22 12:10 BUN 15 mg/dL (6-20) 10/15/22 12:10 Creatinine 0.7 mg/dL (0.5-0.9) 10/15/22 12:10 GFR Calculation 85.9 mL/min (90-130) L 10/15/22 12:10 Glucose 93 mg/dL (65-115) 10/15/22 12:10 Calculated Osmolality 293 mOsm/kg (285-295) 10/15/22 12:10 Calcium 9.0 mg/dL (8.5-10.5) 10/15/22 12:10 Total Bilirubin 0.2 mg/dL (0.15-1.2) 10/15/22 12:10 AST 25 U/L (0-32) 10/15/22 12:10 ALT 19 U/L (0-33) 10/15/22 12:10 Alkaline Phosphatase 38 U/L (35-105) 10/15/22 12:10 Total Protein 6.3 g/dL (6.6-8.7) L 10/15/22 12:10 Albumin 3.9 g/dL (3.5-5.2) 10/15/22 12:10 Globulin 2.4 g/dL (1.3-4.6) 10/15/22 12:10 Urine Color Yellow (Yellow) 10/15/22 11:50 Urine Appearance Clear (CLEAR) 10/15/22 11:50 Urine pH 7 (5-7) 10/15/22 11:50 Ur Specific [place] 1.015 (1.005-1.030) 10/15/22 11:50 Urine Protein Trace (Negative) 10/15/22 11:50 Urine Glucose (UA) Norm (Normal) 10/15/22 11:50 Urine Ketones Negative (Negative) 10/15/22 11:50 Urine Blood Neg (Negative) 10/15/22 11:50 Urine Nitrate Negative (Negative) 10/15/22 11:50 Urine Bilirubin Neg (Negative) 10/15/22 11:50 Urine Urobilinogen Norm mg/dL (Negative) 10/15/22 11:50 Ur Leukocyte Esterase Negative (Negative) 10/15/22 11:50 Urine RBC None /hpf (0-2) 10/15/22 11:50 Urine WBC 0-4 /hpf (0-5) H 10/15/22 11:50 Ur Squamous Epith Cells 0-4 /hpf (0-5) H 10/15/22 11:50 Amorphous Sediment Not Reportable 10/15/22 11:50 Urine Bacteria Trace /hpf (NONE) 10/15/22 11:50 Blood Type AB Positive 10/15/22 12:10 Rho(D) Type Positive 10/15/22 12:10 Antibody Screen Negative 10/15/22 12:10 Vitals Last Vital Signs Temp 97.8 F 10/16/22 08:00 Pulse 60 10/16/22 08:00 Resp 18 10/16/22 08:00 BP 128/78 10/16/22 08:00 Pulse Ox 96 10/16/22 05:39 O2 Del Method 10/16/22 05:39 O2 Flow Rate 2 10/15/22 15:20 Discharge Plan Discharge Patient Disposition: Home Condition: Stable Prescriptions: New hydrocodone-acetaminophen 5-325 mg tablet 1 tab PO Q4H PRN (Reason: pain) Qty: 10 0RF acetaminophen 325 mg capsule 325 mg PO Q4H PRN (Reason: fever or pain) Qty: 60 0RF Continued acetaminophen 650 mg tablet extended release 650 mg PO Q6H PRN (Reason: mod pain) Sinus Relief Severe Congestion 5-325-200 mg tablet 1 tab PO BID ascorbate calcium (vitamin C) 500 mg tablet 500 mg PO DAILY B12 Active 1,000 mcg tablet,chewable 500 mcg PO DAILY aspirin [Adult Low Dose Aspirin] 81 mg tablet,delayed release (DR/EC) 81 mg PO DAILY ascorbic acid-elderberry fruit [Airborne (elderberry)] 100-50 mg tablet,chewable 1 tab PO DAILY (DME) nebulizer See Rx Instructions .Route .MEDSUPPLY Qty: 1 0RF Rx Instructions: Tubing and supplies (DME) sole supports See Rx Instructions .Route .MEDSUPPLY Qty: 1 0RF Rx Instructions: As directed (DME) aso See Rx Instructions .Route .MEDSUPPLY Qty: 1 0RF Rx Instructions: As directed (DME) Night Splint to the right See Rx Instructions .Route .MEDSUPPLY Qty: 1 0RF Rx Instructions: As directed multivitamin Tablet 1 tab PO QAM biotin 1 mg capsule 1 mg PO DAILY cholecalciferol (vitamin D3) 25 mcg (1,000 unit) capsule 50 mcg PO DAILY (DME) CAM WALKER See Rx Instructions .Route .MEDSUPPLY Qty: 1 0RF Rx Instructions: As directed fluticasone propionate [Allergy Relief (fluticasone)] 50 mcg/actuation spray,suspension 2 spray INTRANASAL DAILY Qty: 15.8 5RF fluoxetine [Prozac] 40 mg capsule 40 mg PO QAM Qty: 30 6RF Rx Instructions: Take one capsule every morning cetirizine [Zyrtec] 10 mg tablet 10 mg PO DAILY Qty: 90 1RF donepezil 10 mg tablet 10 mg PO ONCE 90 Days Qty: 90 3RF trazodone 100 mg tablet 100 mg PO BEDTIME PRN (Reason: sleep) Qty: 30 2RF Rx Instructions: Take one tablet one hour prior to bedtime as needed for sleep. estradiol 0.5 mg tablet 0.5 mg PO DAILY Qty: 90 1RF clonazepam [Klonopin] 0.5 mg tablet 0.25 mg PO BID Qty: 30 1RF Rx Instructions: Take half tablet at 8 am and 4 pm acyclovir 400 mg tablet 400 mg PO TID PRN (Reason: onset symptoms) Qty: 90 2RF bumetanide 0.5 mg tablet 0.5 mg PO DAILY Qty: 30 2RF estradiol 0.01 % (0.1 mg/gram) cream See Rx Instructions .ROUTE .COMPLEX Qty: 43 1RF Dose Instruction: INSERT AN APPLICATORFUL VAGINALLY TWICE A WEEK FOR A TOTAL OF 2 MONTHS Rx Instructions: INSERT AN APPLICATORFUL VAGINALLY TWICE A WEEK tizanidine 4 mg tablet See Rx Instructions .ROUTE .COMPLEX Qty: 90 0RF Dose Instruction: Take 1 tablet by mouth three times daily as needed for muscle spasm Rx Instructions: Take 1 tablet by mouth three times daily as needed for muscle spasm dicyclomine 10 mg capsule 10 mg PO TID PRN (Reason: IBS Symptoms) Qty: 90 0RF albuterol sulfate [ProAir HFA] 90 mcg/actuation HFA aerosol inhaler 2 inh inhalation QID PRN (Reason: shortness of breath or wheezing) Qty: 8.5 1RF budesonide-formoterol 160-4.5 mcg/actuation HFA aerosol inhaler 2 puff inhalation BID Discharge Orders: Discharge Order (Routine); Ordered 10/16/22 Ordered By: Davie Tom Discharge Diet: Usual diet Discharge Activity: Limit activity as instructed Patient Instructions: Opioid Safety, Bladder Sling for Women (DC) Activity Restrictions/Additional Instructions: 1. Please call [facility] on next working day to make your post[-operative] appointment in [2] weeks. 2. Please stay home until you come back to the clinic on first post-operative check up. 3. Please follow instructions on your medications CAREFULLY. 4. If you have abdominal incision, do not cover it unless dressing is necessary because of drainage. OK to shower, but avoid bath. Leave steri-strips until they fall off. If they are still on one week after surgery, you may remove them. 5. If you had vaginal surgery or vaginal repair, Dr. Tom may instruct you to take SITZ bath. 6. Yellow, blood tinged odorous vaginal discharge is usually normal after hysterectomy or vaginal surgeries. 7. No sexual intercourse, tampons, or douches until you are completely released from the post-operative care. 8. Avoid constipation by eating right and maybe using some Metamucil or Milk of Magnesia. 9. All prescription refills are given during the working hours. Please do no wait till it runs out. Call the clinic at [phone] before your medication runs out. The clinic will get in touch with your doctor to prescribe medications if necessary. 10. Please remain within 40 mile radius from our hospital because emergencies do happen now and then during the post-operative period. 11. If you have stairs at home, take one step at a time slowly and minimize the number of trips. It helps to stay in one floor for the next few days. No lifting except what you can lift by one hand until you are released from the post-operative care. 12. Driving is discouraged until you are well healed. It may be 3-4 weeks before you feel strong enough to drive. You should be able to turn and look through the rear window without pain and you should be able to push the brake pedal very hard without pain before you drive. No fast rules, but SAFETY should be your primary concern. DO NOT drive if you are on sedating medications such as narcotics. 13. Call the clinic (during working hours) to make urgent appointment or go to the Emergency room, if any of the following occurs: i. Vaginal bleeding becomes heavy, more than a period. ii. Incision becomes red and sore, or drains pus. iii. Your temperature is over 100.4 or you have chill. iv. IV site becomes red and swollen (a little ``knot?? is usually OK) v. Persistent nausea and vomiting vi. Persistent constipation or diarrhea vii. Rash or allergic reaction to medications. 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
[2022-10-16 12:50] VITALS: BP 122/77; PULSE 74; RESP 16; RESP 18; TEMP 36.7
--- NOTE | 2022-10-16 17:06 | PC.NURSE ---
THIS BROACH TROUBLE SHOOTER WASTED 1/2 TABLET OF KLONAPIN AND FORGOT TO WASTE IT IN THE PYEX AT THE TIME I PULLED IT AND WHEN WE GOT A SECOND TO WASTE IT SHE WAS OUT OF PYIX, THIS BROACH TROUBLE SHOOTER TALKED WITH SANJUANA IN [facility] AT 1705 AND HE SAID TO JUST MAKE A NOTE. TIGRE XAVIER RN WAS WITNESS TO WASTE.
== END 2022-10-16 12:45 | disposition home or self-care (01) ==
LOC: OBGYN 16:06
PROVIDERS: Admitting Provider Obstetrics & Gynecology; PCP Family Medicine; Visit Provider Obstetrics & Gynecology
PROC: (CPT 57288; principal; 2022-10-15 13:05)
DX: T83.712A Erosion of implanted urethral mesh to surrounding organ or tissue, initial encounter (principal); K21.9 Gastro-esophageal reflux disease without esophagitis; M79.7 Fibromyalgia; Z79.82 Long term (current) use of aspirin; F41.9 Anxiety disorder, unspecified; F33.9 Major depressive disorder, recurrent, unspecified; Z98.1 Arthrodesis status
CPT/HCPCS: 57287; 36415; 51798; 80053; 81001; 85025; 85027; 86850; 86900; 96374; 96376; C1762; G0378; J1100; J1200; J1885; J2405; J2704; J2710; J3010; J3370; J3490; J7040; J7050; J7121; J8499; Q9968

== ENCOUNTER → 2022-11-24 14:37 | Outpatient (BNVA) | payer OTHER, SELFPAY | PROVIDERS: PCP Family Medicine; Visit Provider Obstetrics & Gynecology | DX: R30.0 Dysuria (principal); R31.9 Hematuria, unspecified | CPT/HCPCS: 84315; 87086 ==

== ENCOUNTER → 2022-12-29 11:08 | Outpatient (BNVA) | payer MEDICARE, SELFPAY | PROVIDERS: PCP Family Medicine; Visit Provider Specialist | DX: G31.84 Mild cognitive impairment of uncertain or unknown etiology (principal); F41.1 Generalized anxiety disorder; F33.2 Major depressive disorder, recurrent severe without psychotic features; G43.711 Chronic migraine without aura, intractable, with status migrainosus; M79.7 Fibromyalgia | CPT/HCPCS: 99214 ==

== ENCOUNTER 2023-01-05 13:02 | Outpatient (CLI) | payer MEDICARE, SELFPAY ==
--- NOTE | 2023-01-05 13:18 | MM_ITS ---
WS: [id number] VIEWS: MLO and CC views both breasts. 3D digital tomosynthesis is also included in this exam. Comparison made with prior exam of 04/27/2013, 11/14/2014, 09/02/2016, 03/01/2018, 05/30/2020. 05/30/2021 .. Findings: There was no sign of mass, architectural distortion or suspicious calcification in either breast. Sc attered fibroglandular densities in both breasts. MM/[place] [id number] Impression: BI-RADS: 2-Benign FOLLOW-UP: 1 Year Follow-up This mammogram was also analyzed by the Computer Aided Detection System R2 Imag e Tank Builder Helper.
== END 2023-01-05 13:03 | disposition home or self-care (01) ==
LOC: RAD 13:06
PROVIDERS: PCP Family Medicine; Visit Provider Family Medicine
DX: Z12.31 Encounter for screening mammogram for malignant neoplasm of breast (principal)
CPT/HCPCS: 77063; 77067

== ENCOUNTER → 2023-03-31 12:11 | Outpatient (BNVA) | payer MEDICARE, SELFPAY | PROVIDERS: PCP Family Medicine; Visit Provider Specialist | DX: G31.84 Mild cognitive impairment of uncertain or unknown etiology (principal); G43.711 Chronic migraine without aura, intractable, with status migrainosus; R55 Syncope and collapse; F33.2 Major depressive disorder, recurrent severe without psychotic features | CPT/HCPCS: 99214 ==

== ENCOUNTER → 2023-07-21 11:49 | Outpatient (BNVA) | payer MEDICARE, SELFPAY | PROVIDERS: PCP Family Medicine; Visit Provider Specialist | DX: R41.3 Other amnesia (principal); R29.90 Unspecified symptoms and signs involving the nervous system; G31.84 Mild cognitive impairment of uncertain or unknown etiology; F41.1 Generalized anxiety disorder | CPT/HCPCS: 96116; 99214 ==

== ENCOUNTER → 2023-12-14 12:09 | Outpatient (BNVA) | payer MEDICARE, SELFPAY | PROVIDERS: PCP Family Medicine; Visit Provider Family Medicine | DX: R51.9 Headache, unspecified (principal); Z13.6 Encounter for screening for cardiovascular disorders; R60.0 Localized edema; J45.41 Moderate persistent asthma with (acute) exacerbation | CPT/HCPCS: 80053; 80061; 85025 ==

== ENCOUNTER 2024-01-06 13:08 | Outpatient (CLI) | payer MEDICARE, SELFPAY ==
--- NOTE | 2024-01-06 13:11 | MM_ITS ---
WS: [id number] BILATERAL 3D TOMOSYNTHESIS DIGITAL SCREENING MAMMOGRAPHY WITH CAD CLINICAL INFORMATION: screening HISTORY: Screening mammogram. No current complaints. COMPARISON: 2022 TECHNIQUE: Bilateral CC and MLO views. FINDINGS: Scattered fibroglandular densities bilaterally. No suspicious focal mass, asymmetry, calcifications, or architectural distortion. No evidence of malignancy. Incidental punctate calcifications. IMPRESSION: MM/[place] [id number] BI-RADS: 2-Benign FOLLOW UP: 1 Year Follow-up Recommend return to annual screening mammography.
== END 2024-01-06 13:09 | disposition home or self-care (01) ==
LOC: RAD 13:09
PROVIDERS: PCP Family Medicine; Visit Provider Family Medicine
DX: Z12.31 Encounter for screening mammogram for malignant neoplasm of breast (principal); R92.323 Mammographic fibroglandular density, bilateral breasts
CPT/HCPCS: 77063; 77067

== ENCOUNTER → 2024-06-14 14:05 | Outpatient (BNVA) | payer MEDICARE, SELFPAY | PROVIDERS: PCP Family Medicine; Visit Provider Family Medicine | DX: R25.2 Cramp and spasm (principal); M79.7 Fibromyalgia; R05.9 Cough, unspecified; J01.00 Acute maxillary sinusitis, unspecified | CPT/HCPCS: 87426 ==

== ENCOUNTER → 2024-07-19 11:19 | Outpatient (BNVA) | payer MEDICARE, SELFPAY | PROVIDERS: PCP Family Medicine; Visit Provider Specialist | DX: R29.90 Unspecified symptoms and signs involving the nervous system (principal); G31.84 Mild cognitive impairment of uncertain or unknown etiology; F41.1 Generalized anxiety disorder | CPT/HCPCS: 96116; 99213 ==

== ENCOUNTER → 2024-08-22 12:54 | Outpatient (BNVA) | payer MEDICARE, SELFPAY | PROVIDERS: PCP Family Medicine; Visit Provider Nurse Practitioner Family | DX: Z86.39 Personal history of other endocrine, nutritional and metabolic disease (principal); E55.9 Vitamin D deficiency, unspecified; M79.7 Fibromyalgia; Z13.6 Encounter for screening for cardiovascular disorders | CPT/HCPCS: 80053; 80061; 82306; 82607; 84443; 85025 ==

== ENCOUNTER → 2025-01-06 15:04 | Outpatient (BNVA) | payer MEDICARE, SELFPAY | PROVIDERS: PCP Family Medicine; Visit Provider Nurse Practitioner Psychiatric/Mental Health | DX: Z79.899 Other long term (current) drug therapy (principal) | CPT/HCPCS: 80053; 82306; 83036 ==

== ENCOUNTER 2025-01-13 12:58 | Outpatient (CLI) | payer MEDICARE, SELFPAY ==
--- NOTE | 2025-01-13 13:00 | MM_ITS ---
WS: [id number] Bilateral screening 3D tomosynthesis digital mammogram, 01/13/2025 1:16 PM Clinical Data: SCREENING Comparison: 01/06/2024, 01/05/2023, 05/30/2021, 05/30/2020, 03/01/2018, 09/02/2016, 11/14/2014, 04/27/2013, 10/28/2010. Findings: No spiculated masses or clustered calcifications are seen. There are no secondary signs of carcinoma. MM/MM scr BI tomosynthesis [id number] Impression: Negative bilateral mammogram unchanged. Recommend annual screening mammograms. BIRADS: 1 - Negative. FOLLOW UP: 1 Year Follow-up DENSITY: There are scattered areas of fibroglandular density. The CAD amusement or recreation card checker was used
== END 2025-01-13 12:59 | disposition home or self-care (01) ==
PROVIDERS: PCP Family Medicine; Visit Provider Nurse Practitioner Family
DX: Z12.31 Encounter for screening mammogram for malignant neoplasm of breast (principal); R92.323 Mammographic fibroglandular density, bilateral breasts
CPT/HCPCS: 77063; 77067

== ENCOUNTER → 2025-01-25 13:06 | Outpatient (BNVA) | payer MEDICARE, SELFPAY | PROVIDERS: PCP Family Medicine; Visit Provider Nurse Practitioner Family | DX: R10.9 Unspecified abdominal pain (principal) | CPT/HCPCS: 80053; 85025 ==

== ENCOUNTER → 2025-02-06 14:24 | Outpatient (BNVA) | payer MEDICARE, SELFPAY | PROVIDERS: PCP Nurse Practitioner Family; Visit Provider Nurse Practitioner Family | DX: R79.89 Other specified abnormal findings of blood chemistry (principal); F33.2 Major depressive disorder, recurrent severe without psychotic features | CPT/HCPCS: 80053; 84443; 85025 ==

== ENCOUNTER 2025-02-08 12:35 | Outpatient (CLI) | payer MEDICARE, SELFPAY ==
[2025-02-08] MEDS: iohexol 350 mg/mL 500 mL Btl (per mL) PO (13:23)
--- NOTE | 2025-02-08 13:30 | CT_ITS ---
WS: [id number] CT ABDOMEN PELVIS TECHNIQUE: Contrast-enhanced CT of the abdomen and pelvis with coronal and sagittal reformatted images. CLINICAL INFORMATION: R10.9 - Unspecified abdominal pain COMPARISON: CT 2017 DLP: 439.[address] scans at [facility] use at least one of these dose optimization techniques: automated exposure control; mA and/or kV adjustment per patient size (includes targeted exams where dose is matched to clinical indication); or iterative reconstruction. FINDINGS: Prior cholecystectomy and hysterectomy. Hepatic steatosis. Normal portal vein and splenic vein. Normal spleen. A few calcified granulomas. Normal pancreas. Lung bases are well aerated. Normal portal vein and splenic vein. Stable LEFT adrenal adenoma. RIGHT adrenal gland is normal. Normal renal parenchymal enhancement. RIGHT renal cyst increased since 2017 measuring 3.4 cm. Celiac and SMA are patent. Normal sigmoid colon. A few sigmoid diverticuli. No evidence of small or large bowel obstruction. Urine distended bladder. No periaortic or retroperitoneal lymphadenopathy. No pelvic lymphadenopathy. Small fat-containing umbilical hernia. Pedicle screw fixation L5-S1. CT/CT abdomen pelvis w con* [id number] IMPRESSION: 1. Hepatic steatosis. 2. Prior cholecystectomy and hysterectomy. 3. Increased RIGHT renal cyst measuring 3.4 cm. 4. Few sigmoid diverticuli. No evidence of acute diverticulitis. 5. Prior pedicle screw fixation L5-S1 with interbody fusion graft.
[2025-02-08] MEDS: iohexol 350 mg/mL 500 mL Btl (per mL) IV (14:14)
== END 2025-02-08 12:36 | disposition home or self-care (01) ==
LOC: RAD 12:36
PROVIDERS: PCP Nurse Practitioner Family; Visit Provider Nurse Practitioner Family
DX: R10.9 Unspecified abdominal pain (principal); K62.5 Hemorrhage of anus and rectum; K59.00 Constipation, unspecified; R19.7 Diarrhea, unspecified; K76.0 Fatty (change of) liver, not elsewhere classified; Z90.49 Acquired absence of other specified parts of digestive tract; Z90.710 Acquired absence of both cervix and uterus; N28.1 Cyst of kidney, acquired; K57.30 Diverticulosis of large intestine without perforation or abscess without bleeding; Z98.890 Other specified postprocedural states; J84.10 Pulmonary fibrosis, unspecified; D35.02 Benign neoplasm of left adrenal gland; K42.9 Umbilical hernia without obstruction or gangrene
CPT/HCPCS: 74177

== ENCOUNTER → 2025-03-06 12:45 | Outpatient (BNVA) | payer MEDICARE, SELFPAY | PROVIDERS: PCP Family Medicine; Referring Provider Nurse Practitioner Family; Visit Provider Student in an Organized Health Care Education/Training Program | DX: R10.9 Unspecified abdominal pain (principal); K21.9 Gastro-esophageal reflux disease without esophagitis; R12 Heartburn | CPT/HCPCS: 99204 ==

== ENCOUNTER 2025-04-11 10:56 | Day surgery (SDC) | payer MEDICARE, SELFPAY ==
--- NOTE | 2025-04-11 11:39 | W.PM.OPSFHP ---
Same Day Surgery H&P Indication for Procedure/HPI DATE OF PROCEDURE: April 11, 2025 CHIEF COMPLAINT/INDICATIONFOR SURGICAL PROCEDURE: screening colonoscopy/heartburn PREOP DIAGNOSIS: screening colonoscopy/heartburn PLANNED PROCEDURE: Operation Date: 04/11/25 12:15 Proposed Procedures p EGD [id number] G0121 R10.9 K21.9(Not Applicable) - Rocky Chopra MD s Colonoscopy(Not Applicable) - Rocky Chopra MD Medications/Allergies* Home Medications ?Medication ?Instructions ?Recorded ?Confirmed ?Type biotin 1 mg capsule 1 mg PO DAILY 04/27/20 04/06/25 History ascorbic acid 100 mg-elderberry 1 tab PO DAILY 12/21/20 04/06/25 History fruit 50 mg chewable tablet (Airborne (elderberry)) aspirin 81 mg tablet,delayed 81 mg PO DAILY 12/21/20 04/06/25 History release (Adult Low Dose Aspirin) acetaminophen 325 mg/10.15 mL oral 325 mg PO Q6H PRN Pain 02/07/25 04/06/25 History solution acyclovir 400 mg tablet 400 mg PO TID PRN Systemic Signs 04/06/25 04/06/25 History And Symptoms budesonide-formoterol HFA 160 2 puff inhalation BID 04/06/25 04/06/25 History mcg-4.5 mcg/actuation aerosol inhaler (Symbicort) bumetanide 0.5 mg tablet 0.5 mg PO DAILY 04/06/25 04/06/25 History tizanidine 4 mg tablet 4 mg PO TID PRN Muscle Spasm 04/06/25 04/06/25 History Allergies/Adverse Reactions Allergy/AdvReac Type Severity Reaction Status Date / Time amoxicillin Allergy Severe Rash Verified 04/06/25 11:15 bupropion (From Wellbutrin) Allergy Severe anaphylaxis Verified 04/06/25 11:15 hydrochlorothiazide Allergy Severe edema, Verified 04/06/25 11:15 sweating latex Allergy Severe rash Verified 04/06/25 11:15 naltrexone Allergy Severe anaphylaxis Verified 04/06/25 11:15 Penicillins Allergy Unknown rash Verified 04/06/25 11:15 prochlorperazine Allergy Unknown Dystonia Verified 04/06/25 11:15 of face quetiapine (From Seroquel) AdvReac ADR-Abdominal Verified 04/06/25 11:15 Pain Pertinent History/Comorbid Conditions* Medical History (Updated 03/07/25 @ 07:12 by Rocky Chopra MD) Aftercare following surgery of the genitourinary system Psychiatric care Genital herpes Mild cognitive impairment with memory loss Fibromyalgia Bereavement Loss of father Generalized anxiety disorder Major depressive disorder, recurrent severe without psychotic features Surgical History (Updated 03/20/22 @ 10:54 by Davie Tom MD) H/O laparoscopy 02/26/2022- diagnostic laparoscopy augmented with allograft, single incision mid urethral sling and cystoscopy, performed by Dr. Tom at [facility] History of laminectomy H/O: hysterectomy S/P cholecystectomy H/O spinal fusion S/P appendectomy S/P tonsillectomy and adenoidectomy Family History (Updated 01/13/22 @ 08:08 by Sofie Abbott LPN) Diabetes Sister Family/Other Maternal uncle CAD (coronary artery disease) Mother Clotting disorder Sister Hyperlipidemia Sister Mother Psychiatric illness Bleeding disorder Sister Harris syndrome Lung disease Cancer Father Prostate Family/Other 2 paternal uncles--lymphoma Hypertension Sister Mother Thyroid disease Sister hypothyroidism Stroke Mother Denies family history of Chronic kidney disease (CKD) Social History Smoking and tobacco/nicotine status: never used tobacco/nicotine Alcohol intake: never Substance/Drug Use: never Pertinent Exam Findings alert, oriented x 3, clear to auscultation bilaterally, regular rate & rhythm and procedure specific exam findings abdomen soft, nt, nd Recommendations Risks and benefits of procedure reviewed Surgery/Procedure today Coding Level of Care Code Acute Code for Chg Fwd
[2025-04-11 11:47] VITALS: BP 116/89; PULSE 87; RESP 18; TEMP 36.7; O2SAT 97; BMI 26.8
[2025-04-11] MEDS: sodium chloride 0.9% 1,000 ML 30 ML IV (11:58)
--- NOTE | 2025-04-11 12:09 | ANES.PREANE2 ---
Pre-Anesthetic Assessment Height/Weight: Height 1.68 m Weight 75.296 kg Temp Pulse Resp BP Pulse Ox O2 Del Method 98.1 F 87 18 116/89 97 Room Air 04/11/25 11:47 04/11/25 11:47 04/11/25 11:47 04/11/25 11:47 04/11/25 11:47 04/11/25 11:47 Preop Diagnosis: screening colonoscopy/heartburn Operation Date: 04/11/25 12:15 Proposed Procedures p EGD [id number] G0121 R10.9 K21.9(Not Applicable) - Rocky Chopra MD s Colonoscopy(Not Applicable) - Rocky Chopra MD Familial anesthetic complications: none Was Beta [place] taken within 24 hours: N/A Was Clonidine taken within 24 hours: N/A Last intake: Intake Last Liquid Date 04/10/25 Last Liquid Time 21:30 Last Solid Date 04/09/25 Last Solid Time 19:00 Social No alcohol and No tobacco Exam alert, oriented x 3, clear to auscultation bilaterally and regular rate & rhythm Airway Submandibular: within normal limits Cervical ROM: within normal limits Mallampati: Class II Dentition: full History/ROS No significant history except as noted and No significant complaints Pulmonary Asthma and Exertional Dyspnea CV/HEM None reported None reported Hepatic None reported GI Gastroesophageal Reflux Disease Metabolic None reported Musc/skel None reported Neuropsych Anxiety and Seizure Anesthetic Plan ASA status: 3 Anesthesia: MAC Risk of > 500 ml blood loss (7ml/kg in children): No Medications/Allergies Home Medications ?Medication ?Instructions ?Recorded ?Confirmed ?Last Taken ?Type biotin 1 mg capsule 1 mg PO DAILY 04/27/20 04/06/25 04/10/25 History ascorbic acid 100 mg-elderberry 1 tab PO DAILY 12/21/20 04/06/25 04/10/25 History fruit 50 mg chewable tablet (Airborne (elderberry)) aspirin 81 mg tablet,delayed 81 mg PO DAILY 12/21/20 04/06/25 04/06/25 History release (Adult Low Dose Aspirin) nebulizer #1 03/21/21 04/06/25 04/10/25 Rx aso #1 ea 05/15/21 04/06/25 04/10/25 Rx sole supports #1 05/15/21 04/06/25 04/10/25 Rx Night Splint to the right #1 ea 06/26/21 04/06/25 04/10/25 Rx albuterol sulfate 90 mcg/actuation 2 inh inhalation QID PRN shortness 08/05/22 04/06/25 10/15/22 Rx aerosol inhaler (ProAir HFA) of breath or wheezing #8.5 grams dicyclomine 10 mg capsule 10 mg PO TID PRN IBS Symptoms #90 08/22/24 04/06/25 04/05/25 Rx caps triamcinolone acetonide 0.1 % 1 applic topical BID 14 days #80 08/22/24 04/06/25 04/10/25 Rx topical cream grams galantamine 8 mg tablet 8 mg PO BID 90 days #180 tabs 12/07/24 04/06/25 04/10/25 Rx trazodone 100 mg tablet 100 mg PO BEDTIME #90 tabs 01/06/25 04/06/25 04/10/25 Rx acetaminophen 325 mg/10.15 mL oral 325 mg PO Q6H PRN Pain 02/07/25 04/06/25 04/05/25 History solution clonazepam 0.5 mg tablet (Klonopin) 0.25 mg (1/2 x 0.5 mg) PO BID #30 02/07/25 04/06/25 04/11/25 08:00 Rx tabs sertraline 100 mg tablet (Zoloft) 150 mg (1.5 x 100 mg) PO .morning 02/07/25 04/06/25 04/11/25 08:00 Rx #45 tabs estradiol 0.01% (0.1 mg/gram) 1 g vaginal .COMPLEX menopausal 02/21/25 04/06/25 04/03/25 Rx vaginal cream vaginal dryness #43 grams pantoprazole 40 mg tablet,delayed 40 mg PO DAILY #90 tabs 02/21/25 04/06/25 04/10/25 Rx release acyclovir 400 mg tablet 400 mg PO TID PRN Systemic Signs 04/06/25 04/06/25 04/06/25 History And Symptoms budesonide-formoterol HFA 160 2 puff inhalation BID 04/06/25 04/06/25 04/11/25 08:00 History mcg-4.5 mcg/actuation aerosol inhaler (Symbicort) bumetanide 0.5 mg tablet 0.5 mg PO DAILY 04/06/25 04/06/25 04/11/25 08:00 History tizanidine 4 mg tablet 4 mg PO TID PRN Muscle Spasm 04/06/25 04/06/25 04/10/25 History Allergies Allergy/AdvReac Type Severity Reaction Status Date / Time amoxicillin Allergy Severe Rash Verified 04/06/25 11:15 bupropion (From Wellbutrin) Allergy Severe anaphylaxis Verified 04/06/25 11:15 hydrochlorothiazide Allergy Severe edema, Verified 04/06/25 11:15 sweating latex Allergy Severe rash Verified 04/06/25 11:15 naltrexone Allergy Severe anaphylaxis Verified 04/06/25 11:15 Penicillins Allergy Unknown rash Verified 04/06/25 11:15 prochlorperazine Allergy Unknown Dystonia Verified 04/06/25 11:15 of face quetiapine (From Seroquel) AdvReac ADR-Abdominal Verified 04/06/25 11:15 Pain Current Medications Generic Name Dose Route Start Last Admin Trade Name Freq PRN Reason Stop Dose Admin Sodium Chloride 1,000 mls @ 30 mls/hr 04/11/25 12:00 04/11/25 11:58 Sodium Chloride 0.9% IV 30 mls/hr .Q24H [facility]ILA Administration [facility] Anesthesia Medical History (Updated 03/07/25 @ 07:12 by Rocky Chopra MD) Aftercare following surgery of the genitourinary system Psychiatric care Genital herpes Mild cognitive impairment with memory loss Fibromyalgia Bereavement Loss of father Generalized anxiety disorder Major depressive disorder, recurrent severe without psychotic features Surgical History (Updated 03/06/25 @ 12:58 by DEEP Ray) H/O laparoscopy 02/26/2022- diagnostic laparoscopy augmented with allograft, single incision mid urethral sling and cystoscopy, performed by Dr. Tom at [facility] History of laminectomy H/O: hysterectomy S/P cholecystectomy H/O spinal fusion S/P appendectomy S/P tonsillectomy and adenoidectomy Family History Sister Bleeding disorder Harris syndrome Diabetes Clotting disorder Hyperlipidemia Hypertension Thyroid disease hypothyroidism Mother CAD (coronary artery disease) Hyperlipidemia Hypertension Stroke Father Cancer Prostate Family/Other Cancer 2 paternal uncles--lymphoma Diabetes Maternal uncle Other Lung disease Psychiatric illness Denies family history of Chronic kidney disease (CKD) Social History Smoking and tobacco/nicotine status: never used tobacco/nicotine Alcohol intake: never Substance/Drug Use: never Female Reproductive History Date of last menstrual period: 04/16/04 Data Anesthesia Cardiac Studies: Echocardiogram Ultrasound 06/08/20
[2025-04-11 12:34] VITALS: BP 101/64; PULSE 80; RESP 18; TEMP 36.2; O2SAT 96
[2025-04-11 12:40] VITALS: BP 103/63; PULSE 66; RESP 18; O2SAT 98
[2025-04-11 12:44] VITALS: BP 107/72; PULSE 82; O2SAT 98
--- NOTE | 2025-04-11 13:26 | ANE.PACU2 ---
Inpatient post-anesthesia follow up: Airway intact: Yes Vital signs: Temperature 97.1 F Pulse Rate 82 Respiratory Rate 18 Blood Pressure 107/72 Pulse Oximetry 98 Oxygen Delivery Me thod Room Air Oxygen Flow Rate Fraction of Inspir ed Oxygen Hydration adequate: Yes Nausea and vomiting: No Pain level: 1 Mental status: Baseline
== END 2025-04-11 13:10 | disposition home or self-care (01) ==
PROVIDERS: PCP Nurse Practitioner Family; Visit Provider Student in an Organized Health Care Education/Training Program
PROC: 0DJ08ZZ Inspection of Upper Intestinal Tract, Via Natural or Artificial Opening Endoscopic (ICD-10-PCS; principal; 2025-04-11 12:15)
PROC: 0DJD8ZZ Inspection of Lower Intestinal Tract, Via Natural or Artificial Opening Endoscopic (ICD-10-PCS; CPT 45378; 2025-04-11 12:15)
DX: Z12.11 Encounter for screening for malignant neoplasm of colon (principal); K57.30 Diverticulosis of large intestine without perforation or abscess without bleeding; K29.50 Unspecified chronic gastritis without bleeding; K21.9 Gastro-esophageal reflux disease without esophagitis; J45.909 Unspecified asthma, uncomplicated; F41.1 Generalized anxiety disorder; Z79.82 Long term (current) use of aspirin; Z79.899 Other long term (current) drug therapy; Z88.0 Allergy status to penicillin; Z88.8 Allergy status to other drugs, medicaments and biological substances; Z91.040 Latex allergy status; Z90.710 Acquired absence of both cervix and uterus; Z90.49 Acquired absence of other specified parts of digestive tract
CPT/HCPCS: 43239; 88305; 88342; G0121; J2704; J7030

== ENCOUNTER → 2025-04-24 11:20 | Outpatient (BNVA) | payer MEDICARE, SELFPAY | PROVIDERS: PCP Nurse Practitioner Family; Visit Provider Student in an Organized Health Care Education/Training Program | DX: Z09 Encounter for follow-up examination after completed treatment for conditions other than malignant neoplasm (principal) | CPT/HCPCS: 99213 ==

== ENCOUNTER → 2025-05-08 14:10 | Outpatient (BNVA) | payer MEDICARE, SELFPAY | PROVIDERS: PCP Nurse Practitioner Family; Visit Provider Nurse Practitioner Family | DX: M25.50 Pain in unspecified joint (principal); E07.9 Disorder of thyroid, unspecified; R23.3 Spontaneous ecchymoses; F33.2 Major depressive disorder, recurrent severe without psychotic features; R79.89 Other specified abnormal findings of blood chemistry | CPT/HCPCS: 80053; 83735; 84439; 84443; 85025; 85651; 86140; 86160; 86162; 86200; 86235; 86255; 86376; 86431 ==

== ENCOUNTER 2025-05-18 14:14 | Outpatient (CLI) | payer MEDICARE, SELFPAY ==
--- NOTE | 2025-05-18 14:30 | US_ITS ---
WS: [id number] THYROID ULTRASOUND HISTORY: E07.9 - Disorder of thyroid, unspecified COMPARISON: None available. Right lobe: 2.1 cm x 1.7 cm x 4.8 cm (w x ap x l). Volume: 8.2 cm3. Enlarged nodular thyroid. The entire gland is nodular with predominantly solid masses. There are a few small cystic areas within the masses. There is increased vascularity. These are isoechoic nodules with the normal thyroid. Largest nodule measures 1.6 x 1.6 x 2.2 cm. Left lobe: 1.5 cm x 1.4 cm x 4.9 cm (w x ap x l). Volume: 5.1 cm3. Mildly enlarged gland. There are multiple spongiform nodules within the gland. The largest in the mid gland measures 1.3 x 1.0 x 1.6 cm. Additional smaller colloid cyst. No solid mass or echogenic foci. Isthmus: 0.3 cm. US/US thyroid [id number] IMPRESSION: TI-RADS 3; multinodular RIGHT thyroid. Benign-appearing nodules. Recommend cont inued yearly ultrasound evaluation. If the largest nodules measure greater than 2.5 cm FNA can be considered.
== END 2025-05-18 14:15 | disposition home or self-care (01) ==
PROVIDERS: PCP Nurse Practitioner Family; Visit Provider Nurse Practitioner Family
DX: E07.9 Disorder of thyroid, unspecified (principal)
CPT/HCPCS: 76536

== ENCOUNTER 2025-06-02 07:53 | Outpatient (CLI) | payer MEDICARE, SELFPAY ==
--- NOTE | 2025-06-02 08:00 | US_ITS ---
WS: [id number] Complete ABDOMINAL ULTRASOUND HISTORY: R10.9 - Unspecified abdominal pain COMPARISON: CT 02/08/2025 Liver: 15.0 cm in length. Normal size with mild coarse echotexture from hepatic steatosis. No mass. No intrahepatic duct dilatation. Portal Vein: Normal hepatopetal flow with monophasic waveform. Gallbladder: Prior cholecystectomy. CBD: 0.4 cm Pancreas: Limited. Right kidney: 8.9 cm x 4.4 x 3.7 cm. Cortex:1.0 cm. Normal size kidney. No obstruction. Simple cyst upper pole 3.1 x 2.6 x 3.0 cm. No obstruction of the kidney. Left kidney: 8.7 cm x 4.4 cm x 4.8 cm. Cortex: 1.0 cm. Normal size and echogenicity. No hydronephrosis or mass. Spleen: 9.6 cm. Normal size and echogenicity. Aorta and IVC: Unremarkable abdominal aorta and IVC. US/US abdomen complete* [id number] Impression: 1. Prior cholecystectomy. 2. Normal size liver with mild hepatic steatosis. 3. RIGHT renal cyst, 3.1 cm. 4. No renal obstruction.
== END 2025-06-02 07:54 | disposition home or self-care (01) ==
LOC: RAD 07:54
PROVIDERS: PCP Nurse Practitioner Family; Visit Provider Nurse Practitioner Family
DX: N28.1 Cyst of kidney, acquired (principal); K76.0 Fatty (change of) liver, not elsewhere classified
CPT/HCPCS: 76700

== ENCOUNTER → 2025-07-12 11:57 | Outpatient (BNVA) | payer MEDICARE, SELFPAY | PROVIDERS: PCP Family Medicine; Visit Provider Specialist | DX: G31.84 Mild cognitive impairment of uncertain or unknown etiology (principal); F41.1 Generalized anxiety disorder | CPT/HCPCS: 36415; 82233; 82234; 82542; 83520; 99214 ==

== ENCOUNTER 2025-08-23 08:13 | Outpatient (CLI) | payer MEDICARE, SELFPAY ==
--- NOTE | 2025-08-23 08:21 | FL_ITS ---
WS: [id number] Barium swallow and esophagram, 08/23/2025 Clinical Data: DYSPHAGIA Comparison: None. Fluoroscopy time: 0min [id number] # of spot films: 34 Findings: The patient swallowed the thick and thin barium, and it flowed through the hypopharynx without hesitation. No aspiration or penetration occurred. No stricture, mass, polyp or erosion was seen. The barium entered the esophagus and there was normal motility throughout. No reflux, stricture, polyp, mass, erosion or ulcer was noted. There was a small sliding hiatal hernia. The barium passed normally into the stomach.. FL/FL barium swallow [id number] Impression: Small sliding hiatal hernia.
== END 2025-08-23 08:14 | disposition home or self-care (01) ==
LOC: RAD 08:17
PROVIDERS: PCP Nurse Practitioner Family; Visit Provider Specialist
DX: R13.10 Dysphagia, unspecified (principal); K44.9 Diaphragmatic hernia without obstruction or gangrene
CPT/HCPCS: 74220

== ENCOUNTER 2025-08-25 09:04 | Outpatient (CLI) | payer MEDICARE, SELFPAY ==
--- NOTE | 2025-08-25 09:14 | CT_ITS ---
WS: [id number] CT NECK TECHNIQUE: Contrast-enhanced CT of the neck with coronal and sagittal reformatted images. CLINICAL INFORMATION: DYSPHAGIA COMPARISON: None. DLP: 220.[address] scans at [facility] use at least one of these dose optimization techniques: automated exposure control; mA and/or kV adjustment per patient size (includes targeted exams where dose is matched to clinical indication); or iterative reconstruction. FINDINGS: Polypoid mucosal thickening RIGHT maxillary sinus. Paranasal sinuses are well aerated. Mastoid air cells are well aerated. Mucosal thickening in the mastoid tips. Normal posterior nasopharynx. Normal parapharyngeal fat. Parotid glands are normal. Submandibular glands are normal. No evidence of supraglottic or glottic mass. Normal subglottic airway. Normal vallecula and epiglottis. Normal piriform sinuses. No cervical lymphadenopathy. Lung apices are well aerated. Bulky multinodular thyroid with heterogeneous enhancement. Largest nodules in the RIGHT measure 2.[address]/CT neck w con* [id number] IMPRESSION: 1. Somewhat bulky multinodular thyroid with heterogeneous enhancement. Larges t nodules in the RIGHT measure 2.3 x 2.1 cm. 2. No cervical lymphadenopathy. 3. Normal salivary glands. 4. No evidence of supraglottic or glottic mass. Normal subglottic airway.
[2025-08-25 09:59] LABS: Blood Urea Nitrogen 18 mg/dL (8-23)
== END 2025-08-25 09:05 | disposition home or self-care (01) ==
LOC: RAD 09:06
PROVIDERS: PCP Nurse Practitioner Family; Visit Provider Specialist
DX: R10.13 Epigastric pain (principal); E04.2 Nontoxic multinodular goiter; J33.8 Other polyp of sinus
CPT/HCPCS: 70491; 82565; 84520

== ENCOUNTER → 2025-10-05 12:08 | Outpatient (BNVA) | payer MEDICARE, SELFPAY | PROVIDERS: PCP Nurse Practitioner Family; Visit Provider Student in an Organized Health Care Education/Training Program | DX: R10.10 Upper abdominal pain, unspecified (principal); G89.29 Other chronic pain; M54.9 Dorsalgia, unspecified | CPT/HCPCS: 72100; 99203; 99213 ==

== ENCOUNTER → 2025-10-17 10:36 | Outpatient (BNVA) | payer MEDICARE, SELFPAY | PROVIDERS: PCP Nurse Practitioner Family; Visit Provider Orthopaedic Surgery | DX: Z98.1 Arthrodesis status (principal); R29.898 Other symptoms and signs involving the musculoskeletal system | CPT/HCPCS: 99213 ==

== ENCOUNTER 2025-10-25 12:42 | Outpatient (CLI) | payer MEDICARE, SELFPAY ==
--- NOTE | 2025-10-25 13:00 | MR_ITS ---
WS: [id number] MRI LUMBAR SPINE NONCONTRAST TECHNIQUE: Sagittal T1, T2 and STIR imaging. Axial T1 and T2 imaging. CLINICAL INFORMATION: back pain COMPARISON: None. FINDINGS: Mild lumbar curve. No acute compression. Pedicle screw fixation L5-S1. Laminectomy defects. L1-L2: Normal. L2-L3: Mild annular bulging. Slight narrowing the LEFT subarticular recess. Foramen are patent. Moderate facet arthropathy. L3-L4: Mild annular bulging. Narrowing of the LEFT subarticular recess. Mild bilateral foraminal narrowing. Moderate facet arthropathy. L4-L5: Disc bulging in combination with facet arthropathy and ligamentum flavum hypertrophy results in moderate central canal stenosis. Impingement of traversing L5 nerve roots LEFT greater than RIGHT. Moderate LEFT and mild RIGHT foraminal narrowing. L5-S1: Pedicle screw fixation. Interbody fusion. Spinal canal and foramen are patent. Visualized pelvic bony structures: Normal. Paravertebral soft tissues: Normal. Small central protrusion cervical spine at C5-6 with mild central canal stenosis on the oil mixer imaging. Partially visualized RIGHT renal cyst. MR/MR lumbar spine wo con* [id number] IMPRESSION: 1. Pedicle screw fixation L5-S1 with laminectomy defects. 2. Central disc protrusion L4-5 impinges the traversing L5 nerve roots bilater ally with moderate central canal stenosis. 3. Moderate LEFT L4-5 foraminal narrowing with a LEFT foraminal protrusion imp inges the exiting LEFT L4 nerve root. 4. Mild LEFT greater than RIGHT L3-4 foraminal narrowing
== END 2025-10-25 12:43 | disposition home or self-care (01) ==
LOC: RAD 12:43
PROVIDERS: PCP Nurse Practitioner Family; Visit Provider Orthopaedic Surgery
DX: Z98.1 Arthrodesis status (principal); M47.816 Spondylosis without myelopathy or radiculopathy, lumbar region; M51.86 Other intervertebral disc disorders, lumbar region; M48.062 Spinal stenosis, lumbar region with neurogenic claudication; M51.361 Other intervertebral disc degeneration, lumbar region with lower extremity pain only; Z96.89 Presence of other specified functional implants; M43.27 Fusion of spine, lumbosacral region
CPT/HCPCS: 72148

== ENCOUNTER → 2025-10-31 13:47 | Outpatient (BNVA) | payer MEDICARE, SELFPAY | PROVIDERS: PCP Nurse Practitioner Family; Visit Provider Orthopaedic Surgery | DX: Z01.818 Encounter for other preprocedural examination (principal); M48.062 Spinal stenosis, lumbar region with neurogenic claudication; Z51.89 Encounter for other specified aftercare | CPT/HCPCS: 99214 ==